=== PATIENT | female | born 1930 | race Caucasian/White ===

== ENCOUNTER 2017-11-26 08:31 | Emergency (ER) | payer MEDICARE, OTHER ==
[~2017-11-26] VITALS: Ht 154.9 cm; Wt 56.7 kg
[~2017-11-26 08:31] MED LIST: ATEN50TA PO; CITA20TA9 PO; ENAL5TAB PO; FENO200C PO; GLIM4TAB PO; LEVO112T55 PO; NF-SOLIF5T PO
[2017-11-26 09:09] LABS: BASOPHILS % (AUTO) 0 % (0-10); EOSINOPHILS % (AUTO) 0 % (0-10); HEMATOCRIT 36 % (35-52); HEMOGLOBIN 12.1 G/DL (11.5-16.0); LYMPHOCYTES # (AUTO) 1.8 X 10^3 (1.0-4.0); LYMPHOCYTES % (AUTO) 25 % (12-44); MEAN CORPUSCULAR HEMOGLOBIN 29 PG (25-34); MEAN CORPUSCULAR HGB CONC 34 G/DL (32-36); MEAN CORPUSCULAR VOLUME 86 FL (80-99); MEAN PLATELET VOLUME 11.2 FL (7.4-10.4); MONOCYTES # (AUTO) 0.6 X 10^3 (0.0-1.0); MONOCYTES % (AUTO) 8 % (0-12); NEUTROPHILS # (AUTO) 4.8 X 10^3 (1.8-7.8); NEUTROPHILS % (AUTO) 67 % (42-75); PLATELET COUNT 126 10^3/uL (130-400); RED BLOOD COUNT 4.19 10^6/uL (4.35-5.85); RED CELL DISTRIBUTION WIDTH 14.8 % (10.0-14.5); WHITE BLOOD COUNT 7.2 10^3/uL (4.3-11.0)
--- NOTE | 2017-11-26 09:23 | Diagnostic Imaging Report ---
PROCEDURE: CT head without contrast. TECHNIQUE: Multiple contiguous axial images were obtained through the brain without the use of intravenous contrast. DATE: 11/26/2017. COMPARISON: 04/07/2016. INDICATION: An 87-year-old female, altered mental status. FINDINGS: There is reduced attenuation in the right greater than left subcortical and periventricular white matter which appears similar to comparison CT head of 04/07/2016. The ventricles and cerebral spinal fluid spaces are of normal size and configuration for the patient's age. There is no mass effect or midline shift. There is no acute intracranial hemorrhage. There is no abnormal extra-axial fluid collection. The visualized portions of the paranasal sinuses, mastoid air cells and middle ears are well aerated. IMPRESSION: 1. No identified acute intracranial abnormality. 2. Nonspecific areas of reduced attenuation in the right greater than left subcortical and paraventricular white matter which potentially may reflect changes of chronic small vessel ischemic disease. This is unchanged since 04/07/2016. Dictated by: Dictated on workstation # [id number]
[2017-11-26 09:31] LABS: ALBUMIN 4.1 GM/DL (3.2-4.5); CALCIUM 9.4 MG/DL (8.5-10.1); CREATININE SERUM 1.05 MG/DL (0.60-1.30); POTASSIUM 3.8 MMOL/L (3.6-5.0); TOTAL PROTEIN 6.2 GM/DL (6.4-8.2)
[2017-11-26] MEDS ORDERED: NS IV 1000 ML 1,000 ML IV ONE (09:35)
--- NOTE | 2017-11-26 09:35 | ED Neurological Problem ---
General Chief Complaint: Altered Mental Status Stated Complaint: AMS Nursing Triage Note: PT TO ROOM 5 AMBULATED W FAMILY, PT FRIENDLY, FAMILY STATES HAS NOT SLEPT FOR 3 DAYS OR NITES, PT HAS CALLED 911 HALLUCINATING SOMEONE IN HOME TRYING TO HURT HER, PT DAUGHTER STATES HAD GOTTEN CIRCUIT BREAKER ASSEMBLER KNIFE TWICE LAST PM TALKING TO PEOPLE ASKING WHAT THEY WANTED HER TO DO NEXT. PT IS ALERT AND ORIENTED. WAS SEEN IN ED A FEW NITES AGO. Nursing Sepsis Screen: No Definite Risk Source: patient Exam Limitations: no limitations History of Present Illness Date Seen by Provider: Nov 26, 2017 Time Seen by Provider: 08:40 Initial Comments This 87-year-old woman is brought to the emergency room by her family with concerns about her agitation, hallucinations, and insomnia. She is quite fearful that people are trying to harm her and is having hallucinations to that effect. She also has not slept well in the last several nights. She was seen for similar symptoms on November 23 with a negative workup. She had some hypoglycemia prior to that. On the prior visit her medications were adjusted including decreasing glimepiride and increasing her blood pressure medications. Symptoms have not improved with these changes. In fact she has worsened. Family stated she even got pole framer knives out last night due to fear of triggers. This morning she called 911. Patient is distrustful of her family and any healthcare providers aside from Yara Gray, her primary care provider. She states she would not be agreeable or cooperative with a transfer to a behavioral health unit. Allergies and Home Medications Allergies Coded Allergies: No Known Drug Allergies (Unverified , 03/29/16) Home Medications Atenolol 50 Mg Tablet, 50 MG PO DAILY, (Reported) Cephalexin 500 Mg Capsule, 500 MG PO TID Prescribed by: RADHA VANEGAS on 11/26/17 1119 Citalopram Hydrobromide 20 Mg Tablet, 20 MG PO DAILY, (Reported) Enalapril Maleate 5 Mg Tablet, 5 MG PO DAILY, (Reported) Fenofibrate,Micronized 200 Mg Capsule, 160 MG PO DAILY, (Reported) Glimepiride 4 Mg Tablet, 4 MG PO DAILY, (Reported) Levothyroxine Sodium 112 Mcg Tablet, 112 MCG PO DAILY, (Reported) Quetiapine Fumarate 25 Mg Tablet, 1-2 TAB PO HS Prescribed by: RADHA VANEGAS on 11/26/17 1119 Solifenacin Succinate 5 Mg Tablet, 5 MG PO DAILY, (Reported) Patient Home Medication List Home Medication List Reviewed: Yes Review of Systems Constitutional: no symptoms reported Eyes: No Symptoms Reported Ears, Nose, Mouth, Throat: no symptoms reported Respiratory: no symptoms reported Cardiovascular: no symptoms reported Gastrointestinal: no symptoms reported Genitourinary: no symptoms reported : No Musculoskeletal: no symptoms reported Skin: no symptoms reported Psychiatric/Neurological: See HPI Endocrine: No Symptoms Reported Hematologic/Lymphatic: No Symptoms Reported Past Zoerhsq-Nkmjfj-Fnzjdj Hx Patient Social History Alcohol Use: Denies Use Recreational Drug Use: No Smoking Status: Never a Smoker Recent Foreign Travel: No Contact w/Someone Who Travel: No Recent Infectious Disease Expo: No Recent Hopitalizations: No Physical Abuse: No Sexual Abuse: No Seasonal Allergies Seasonal Allergies: No Past Medical History Surgeries: Yes Gallbladder Respiratory: No Cardiac: Yes Hypertension Neurological: No Gastrointestinal: No Musculoskeletal: No Endocrine: Yes Diabetes, Insulin dep, Hypothyroidsim Cancer: No Psychosocial: No Nursing Suicide Risk Score: 0 Integumentary: No Physical Exam Vital Signs Vital Signs - First Documented 11/26/17 08:35 Temp 97.5 Pulse 84 Resp 18 B/P (MAP) 184/90 (121) Pulse Ox 98 Capillary Refill : Less Than 3 Seconds General Appearance: WD/WN, no apparent distress, thin HEENT: PERRL/EOMI, normal ENT inspection, other (oropharynx dry) Neck: normal inspection Respiratory: lungs clear, normal breath sounds, no respiratory distress, no accessory muscle use Cardiovascular: regular rate, rhythm, no edema, no murmur Gastrointestinal: normal bowel sounds, non tender, soft Extremities: normal inspection, no pedal edema Neurologic/Psychiatric: crystal calibrator II-XII nml as tested, no motor/sensory deficits, alert, oriented x 3, other (paranoid, agitated. Admits to hallucinations but does not believe they are hallucinations) Crainal Nerves: normal hearing, normal speech, PERRL Motor/Sensory: no motor deficit, no sensory deficit Skin: normal color, warm/dry Progress/Results/Core Measures Lab Results Laboratory Tests Test 11/26/17 08:39 11/26/17 09:00 11/26/17 10:06 Range/Units Glucometer 249 H 70-110 MG/DL White Blood Count 7.2 4.3-11.0 10^3/uL Red Blood Count 4.19 L 4.35-5.85 10^6/uL Hemoglobin 12.1 11.5-16.0 G/DL Hematocrit 36 35-52 % Mean Corpuscular Volume 86 80-99 FL Mean Corpuscular Hemoglobin 29 25-34 PG Mean Corpuscular Hemoglobin Concent 34 32-36 G/DL Red Cell Distribution Width 14.8 H 10.0-14.5 % Platelet Count 126 L 130-400 10^3/uL Mean Platelet Volume 11.2 H 7.4-10.4 FL Neutrophils (%) (Auto) 67 42-75 % Lymphocytes (%) (Auto) 25 12-44 % Monocytes (%) (Auto) 8 0-12 % Eosinophils (%) (Auto) 0 0-10 % Basophils (%) (Auto) 0 0-10 % Neutrophils # (Auto) 4.8 1.8-7.8 X 10^3 Lymphocytes # (Auto) 1.8 1.0-4.0 X 10^3 Monocytes # (Auto) 0.6 0.0-1.0 X 10^3 Eosinophils # (Auto) 0.0 0.0-0.3 10^3/uL Basophils # (Auto) 0.0 0.0-0.1 10^3/uL Sodium Level 139 135-145 MMOL/L Potassium Level 3.8 3.6-5.0 MMOL/L Chloride Level 106 98-107 MMOL/L Carbon Dioxide Level 21 21-32 MMOL/L Anion Gap 12 5-14 MMOL/L Blood Urea Nitrogen 16 7-18 MG/DL Creatinine 1.05 0.60-1.30 MG/DL Estimat Glomerular Filtration Rate 50 BUN/Creatinine Ratio 15 Glucose Level 238 H 70-105 MG/DL Calcium Level 9.4 8.5-10.1 MG/DL Total Bilirubin 1.0 0.1-1.0 MG/DL Aspartate Amino Transf (AST/SGOT) 24 5-34 U/L Alanine Aminotransferase (ALT/SGPT) 16 0-55 U/L Alkaline Phosphatase 46 40-136 U/L Total Protein 6.2 L 6.4-8.2 GM/DL Albumin 4.1 3.2-4.5 GM/DL Urine Color YELLOW Urine Clarity CLEAR Urine pH 6.5 5-9 Urine Specific Mclean 1.015 L 1.016-1.022 Urine Protein NEGATIVE NEGATIVE Urine Glucose (UA) 4+ H NEGATIVE Urine Ketones 2+ H NEGATIVE Urine Nitrite NEGATIVE NEGATIVE Urine Bilirubin NEGATIVE NEGATIVE Urine Urobilinogen NORMAL NORMAL MG/DL Urine Leukocyte Esterase 2+ H NEGATIVE Urine RBC (Auto) 1+ H NEGATIVE Urine RBC 0-2 /HPF Urine WBC 2-5 /HPF Urine Squamous Epithelial Cells 2-5 /HPF Urine Crystals NONE /LPF Urine Bacteria TRACE /HPF Urine Casts NONE /LPF Urine Mucus NEGATIVE /LPF Urine Culture Indicated YES My Orders Orders - RADHA QUARLES MD Cbc With Automated Diff (11/26/17 08:39) Comprehensive Metabolic Panel (11/26/17 08:39) Ua Culture If Indicated (11/26/17 08:39) Saline Lock/Iv-Start (11/26/17 08:39) Ct Head Wo (11/26/17 08:39) Chest 1 View, Ap/Pa Only (11/26/17 08:39) Saline Lock/Iv-Start (11/26/17 09:35) Ns Iv 1000 Ml (Sodium Chloride 0.9%) (11/26/17 09:35) Urine Culture (11/26/17 10:06) Medications Given in ED Current Medications Medications Dose Ordered Sig/Shae Route Start Time Stop Time Status Last Admin Dose Admin Sodium Chloride 1,000 ml @ 0 mls/hr Q0M ONCE IV 11/26/17 09:35 11/26/17 09:36 DC 11/26/17 09:41 1,000 MLS/HR Vital Signs/I&O 11/26/17 11/26/17 08:35 11:26 Temp 97.5 97.5 Pulse 84 84 Resp 18 18 B/P (MAP) 184/90 (121) 184/90 (121) Pulse Ox 98 98 Blood Pressure Mean: 121 Progress Note : Progress Note Workup was again unremarkable including CT of the head. I had a lengthy conversation with patient and family. Patient is adamantly opposed to transfer to behavioral health unit or any pharmacologic treatment and not directly approved by Yara Gray. I recommended Seroquel and treatment with antibiotics for possible urinary tract infection. Patient is resistant to these recommendations. I discussed the case with Dr. Gray who approves this course of therapy on the half of [facility] Gray. Follow-up will be pursued Wednesday morning for a medication review. Since patient would be involuntary for transfer to a senior behavioral unit, family wishes not to pursue that route at this moment. They wanted to try to get the patient on Seroquel first. Diagonstic Imaging: CT Plain Films/CT/US/NM/MRI: head Comments CT head viewed by me and report reviewed. See report below: NAME: [facility] REC#: [id number] PT STATUS: REG ER : 1930 PHYSICIAN: RADHA QUARLES MD ADMIT DATE: 11/26/17/ER Draft Date of Exam:11/26/17 CT HEAD WO PROCEDURE: CT head without contrast. TECHNIQUE: Multiple contiguous axial images were obtained through the brain without the use of intravenous contrast. DATE: 11/26/2017. COMPARISON: 04/07/2016. INDICATION: An 87-year-old female, altered mental status. FINDINGS: There is reduced attenuation in the right greater than left subcortical and periventricular white matter which appears similar to comparison CT head of 04/07/2016. The ventricles and cerebral spinal fluid spaces are of normal size and configuration for the patient's age. There is no mass effect or midline shift. There is no acute intracranial hemorrhage. There is no abnormal extra-axial fluid collection. The visualized portions of the paranasal sinuses, mastoid air cells and middle ears are well aerated. IMPRESSION: 1. No identified acute intracranial abnormality. 2. Nonspecific areas of reduced attenuation in the right greater than left subcortical and paraventricular white matter which potentially may reflect changes of chronic small vessel ischemic disease. This is unchanged since 04/07/2016. Dictated on workstation # [id number] Dict: 11/26/17912 Trans: 11/26/17 0923 [facility] [id number] Interpreted by: BRE ART MD Diagonstic Imaging: Xray Plain Films/CT/US/NM/MRI: chest Comments NAME: [facility] REC#: [id number] PT STATUS: REG ER : 1930 PHYSICIAN: RADHA QUARLES MD ADMIT DATE: 11/26/17/ER Draft Date of Exam:11/26/17 CHEST 1 VIEW, AP/PA ONLY EXAM: Portable erect AP chest at 9:19 a.m. FINDINGS: There is shallow inspiration when compared with the prior exam of 03/29/2016. Allowing for this technical factor, the heart size is stable and within normal limits. The lungs are clear. There is no evidence for pneumonia, failure or pleural effusion. The mediastinum is not widened. The osseous structures are intact. IMPRESSION: There is no evidence for an acute cardiopulmonary abnormality. Dictated on workstation # [id number] Dict: 11/26/17 0936 Trans: 11/26/17 1008 [facility] [id number] Interpreted by: SOCORRO BUENROSTRO MD Departure Impression Primary Impression: Agitation Additional Impressions: Hallucination Urinary tract infection Qualified Codes: N39.0 - Urinary tract infection, site not specified Insomnia Qualified Codes: G47.00 - Insomnia, unspecified Disposition: HOME, SELF-CARE Condition: Stable Departure-Patient Inst. Decision time for Depature: 11:08 Referrals: FREDDY GRAY DO (PCP/Family) Primary Care Physician Patient Instructions: Urinary Tract Infection, Adult (DC) Add. Discharge Instructions: Start Seroquel 25 mg at supper time. Increase to 50 mg of 25 mg is not effective for improving sleep and agitation. Complete antibiotic as prescribed. See your primary care provider on Wednesday. Review medications at that time. Return to care if symptoms worsen. All discharge instructions reviewed with patient and/or family. Voiced understanding. Scripts Cephalexin (Keflex) 500 Mg Capsule 500 MG PO TID, #20 CAP Prov: RADHA QUARLES MD 11/26/17 Quetiapine Fumarate (Seroquel) 25 Mg Tablet 1-2 TAB PO HS, #30 TAB Prov: RADHA QUARLES MD 11/26/17 RADHA QUARLES MD Nov 26, 2017 09:35
--- NOTE | 2017-11-26 10:08 | Diagnostic Imaging Report ---
EXAM: Portable erect AP chest at 9:19 a.m. FINDINGS: There is shallow inspiration when compared with the prior exam of 03/29/2016. Allowing for this technical factor, the heart size is stable and within normal limits. The lungs are clear. There is no evidence for pneumonia, failure or pleural effusion. The mediastinum is not widened. The osseous structures are intact. IMPRESSION: There is no evidence for an acute cardiopulmonary abnormality. Dictated by: Dictated on workstation # [id number]
[2017-11-26 10:17] LABS: BILIRUBIN,URINE NEGATIVE (NEGATIVE); CLARITY,URINE CLEAR; COLOR,URINE YELLOW; GLUCOSE, URINE (UA) 4+ (NEGATIVE); KETONES,URINE 2+ (NEGATIVE); LEUKOCYTE ESTERASE ,URINE 2+ (NEGATIVE); NITRITE,URINE NEGATIVE (NEGATIVE); PH,URINE 6.5 (5-9); PROTEIN,URINE NEGATIVE (NEGATIVE); UROBILINOGEN,URINE NORMAL (NORMAL)
[2017-11-26 10:28] LABS: BACTERIA,URINE TRACE /HPF; RBC,URINE 0-2 /HPF
[2017-11-26] MEDS ORDERED: QUET25TA PO (11:19)
[2017-11-26] MEDS ORDERED: CEPH-507 PO (11:19)
[2017-11-26 11:26] VITALS: BP 184/90
== END 2017-11-26 11:26 | disposition home or self-care (01) ==
LOC: EDUNIT# 08:31 → ER 08:33
DX: R45.1 Restlessness and agitation (principal); N39.0 Urinary tract infection, site not specified; G47.00 Insomnia, unspecified; R44.1 Visual hallucinations; I10 Essential (primary) hypertension; E11.9 Type 2 diabetes mellitus without complications; E03.9 Hypothyroidism, unspecified; Z79.84 Long term (current) use of oral hypoglycemic drugs
CPT/HCPCS: 36415; 70450; 71045; 80053; 81000; 82962; 85025; 87088; 96360

== ENCOUNTER 2017-11-29 14:54 | Inpatient (IN) | payer MEDICARE, OTHER ==
[~2017-11-29] VITALS: Ht 160 cm; Wt 60.8 kg
[~2017-11-29 14:54] MED LIST changes: +CEPH-507 PO; +QUET25TA PO
[2017-11-29 15:50] VITALS: BP 210/81
[2017-11-29] MEDS ORDERED: cefTRIAXone INJECTION 1,000 MG in NS (IVPB) 100 ML IV SCH (15:53)
[2017-11-29] MEDS ORDERED: QUET25TA73 PO (16:00)
[2017-11-29] MEDS ORDERED: CEPH500C PO (16:00)
[2017-11-29] MEDS ORDERED: FENO160T12 PO (16:00)
[2017-11-29] MEDS ORDERED: CATHETER FLUSH 10 ML SYR IV PRN (16:00)
--- NOTE | 2017-11-29 16:13 | History & Physical-Hospitalist ---
History of Present Illness HPI/Chief Complaint Pt is a 87yoCF with a history of HTN, diabetes, and hypothyroidism who presented as a direct admission from Dr Gray's office due to paranoid delusions. She is able to tell some history though due to her delusions I am unsure what is true. Her daughter at bedside helps to supplement the history. She states that she believes for the past 2 years someone has been poisoning her water and food. She is unsure who is doing this or why so she has not eaten or drank due to this. Per her daughter these thought began around 2 weeks ago but her behaviors have worsened over the past few days with decreased intake and refusal to take any medications. Patient's only physical complaint is sneezing, runny nose, and watery eyes. Per review of ER note on 11/26 she was seen here for a UTI and sent home with antibiotics and seroquel due to lack of sleep. She has refused to take these until her NITROGLYCERIN DISTRIBUTOR Yara Gray could review them and approve of them. She does agree to me to take medications here. Source: patient, family Exam Limitations: clinical condition Date Seen 11/29/17 Time Seen by Provider: 15:45 Attending Physician Dejuan Madrigal MD PCP Jeffy Gray DO Referring Physician Date of Admission Nov 29, 2017 at 3:30 pm Home Medications & Allergies Home Medications Reviewed patient Home Medication Reconciliation performed by pharmacy medication reconciliations line service technician and/or nursing. Patients Allergies have been reviewed. Allergies Allergies Coded Allergies No Known Drug Allergies (Unverified03/29/16) Past Uilridc-Wrmwzv-Wefrse Hx Past Med/Social Hx: Reviewed and Corrections made Patient Social History Employed/Student: retired Alcohol Use: Denies Use Smoking Status: Never a Smoker Recent Foreign Travel: No Contact w/other who traveled: No Recent Hopitalizations: No Seasonal Allergies Seasonal Allergies: No Past Medical History Surgeries: Gallbladder Cardiac: High Cholesterol, Hypertension Endocrine: Diabetes, Insulin dep, Hypothyroidsim Psychosocial: Depression Family History Reviewed and Corrections made Heart Disease Review of Systems ROS-Unable to Obtain: limited due to delirium Constitutional: see HPI EENTM: tearing, nose congestion Genitourinary: No dysuria, No frequency Physical Exam Physical Exam Vital Signs Vital Signs - First Documented 11/29/17 15:50 Temp 99.8 Pulse 61 Resp 16 B/P (MAP) 210/81 (124) Pulse Ox 98 O2 Delivery Room Air Capillary Refill : General Appearance: No Apparent Distress, WD/WN HEENT: PERRL/EOMI; No Scleral Icterus (L), No Scleral Icterus (R); Other (dry mucus membranes) Neck: Non Tender, Supple; No JVD Respiratory: Lungs Clear, No Respiratory Distress Cardiovascular: Regular Rate, Rhythm, No Murmur Gastrointestinal: Normal Bowel Sounds, Non Tender, Soft Extremity: Normal Capillary Refill, No Calf Tenderness, Pedal Edema (trace) Neurologic/Psychiatric: Alert, Oriented x3, Other (oriented to self and place, not to situation, calm and cooperative but paranoid) Skin: Normal Color, Warm/Dry Results Results/Procedures Labs Laboratory Tests 11/29/17 16:55 11/30/17 06:30 12/01/17 05:45 Patient resulted labs reviewed. Assessment/Plan Admission Diagnosis UTI with Delirium Admission Status: Inpatient Order (span 2 midnights) Reason for Inpatient Admission: failed outpatient treatment Diagnosis/Problems Diagnosis/Problems (1) UTI (urinary tract infection) Status: Acute Assessment & Plan: bacteria noted on UTI but culture grew only normal estephania Will repeat and start on Rocephin Does not meet any sepsis criteria Qualifiers: Urinary tract infection type: acute cystitis Hematuria presence: without hematuria Qualified Codes: N30.00 - Acute cystitis without hematuria (2) Delirium Assessment & Plan: new onset CT head on 11/26 showed not acute changes (chronic small vessel disease) No history of falls reported, does not appear to be on blood thinner Will check electrolytes, TSH, glucose, and CXR to evaluate for other causes Will resume Seroquel Consider consult for Behavioral Unit in AM if not medical cause found (3) Essential (primary) hypertension Assessment & Plan: BP very elevated on arrival Requested manual BP reading Has been off home meds Will resume (4) Insulin dependent diabetes mellitus Status: Chronic Assessment & Plan: Reports insulin dependent but no insulin in bag of meds form home Only novolog on fill history from 10/27 Will trend and add SSI A ACHS blood sugars (5) Hypothyroidism Status: Chronic Assessment & Plan: TSh on 11/23 WNL as was T4 Resume Synthroid in AM Qualifiers: Hypothyroidism type: acquired Qualified Codes: E03.9 - Hypothyroidism, unspecified DEJUAN MADRIGAL MD Nov 29, 2017 4:12 pm
[2017-11-29] MEDS ORDERED: ONDANSETRON 4 MG/2 ML (SDV) Z0FRAN IV PRN (16:30)
[2017-11-29] MEDS ORDERED: MILK OF MAGNESIA 400 MG/5 ML 30 ML UDC PO PRN (16:30)
[2017-11-29] MEDS ORDERED: BENZONATATE 100 MG (TESSALON) CAPSULE PO PRN (16:30)
[2017-11-29] MEDS ORDERED: ANTACID SUSP 30 ML UDC (MYLANTA) PO PRN (16:30)
--- NOTE | 2017-11-29 16:37 | Diagnostic Imaging Report ---
INDICATION: Delirium, fever, confusion. TECHNIQUE: Single-view chest at 04:06p.m. CORRELATION STUDY: 11/26/2017. FINDINGS: Heart size is mildly enlarged. Mediastinum appears slightly prominent with likely tortuous course of thoracic aorta. Vasculature is within normal limits. No infiltrate. There are mildly prominent interstitial markings likely senescent type changes. IMPRESSION: 1. Negative for acute abnormality of the chest on portable imaging. Dictated by: Dictated on workstation # [id number]
[2017-11-29] MEDS ORDERED: ACETAMINOPHEN 325 MG TABLET/CAPLET (TYLENOL) PO PRN (16:45)
[2017-11-29] MEDS: NITROGLYCERIN 2% OINT 1 GM UNIT DOSE PACKET TOP PRN (16:52)
[2017-11-29] MEDS: inSUlin ASPART (NovoLOG) 1 UNIT/0.01 ML (CHARGE PER UNIT) SC SCH ×2 (17:09→21:11)
[2017-11-29 17:13] LABS: BASOPHILS % (AUTO) 0 % (0-10); EOSINOPHILS # (AUTO) 0.1 10^3/uL (0.0-0.3); EOSINOPHILS % (AUTO) 1 % (0-10); HEMATOCRIT 39 % (35-52); HEMOGLOBIN 13.2 G/DL (11.5-16.0); LYMPHOCYTES % (AUTO) 41 % (12-44); MEAN CORPUSCULAR HEMOGLOBIN 30 PG (25-34); MEAN CORPUSCULAR HGB CONC 34 G/DL (32-36); MEAN CORPUSCULAR VOLUME 87 FL (80-99); MEAN PLATELET VOLUME 11.5 FL (7.4-10.4); MONOCYTES # (AUTO) 0.6 X 10^3 (0.0-1.0); MONOCYTES % (AUTO) 8 % (0-12); NEUTROPHILS # (AUTO) 3.6 X 10^3 (1.8-7.8); NEUTROPHILS % (AUTO) 49 % (42-75); PLATELET COUNT 132 10^3/uL (130-400); RED BLOOD COUNT 4.47 10^6/uL (4.35-5.85); WHITE BLOOD COUNT 7.3 10^3/uL (4.3-11.0)
[2017-11-29 17:26] LABS: BILIRUBIN,TOTAL 1.1 MG/DL (0.1-1.0); CALCIUM 9.7 MG/DL (8.5-10.1); CREATININE SERUM 0.92 MG/DL (0.60-1.30); POTASSIUM 4.1 MMOL/L (3.6-5.0); TOTAL PROTEIN 6.6 GM/DL (6.4-8.2)
[2017-11-29 17:27] LABS: INR 1.1 (0.8-1.4); PROTHROMBIN TIME PATIENT 14.4 SEC (12.2-14.7)
[2017-11-29 19:00] VITALS: BP 184/76
[2017-11-29] MEDS: TROSPIUM 20 MG (SANCTURA) TAB PO SCH (19:25)
[2017-11-29] MEDS: QUEtiapine 25 MG (SEROquel) TAB IMMEDIATE RELEASE PO SCH (19:25)
[2017-11-29] MEDS ORDERED: ZIPRASIDONE 20 MG INJ (GEODON) VIAL IM PRN (19:30)
[2017-11-29 20:23] LABS: BILIRUBIN,URINE NEGATIVE (NEGATIVE); CLARITY,URINE CLEAR; COLOR,URINE YELLOW; GLUCOSE, URINE (UA) NEGATIVE (NEGATIVE); KETONES,URINE 1+ (NEGATIVE); LEUKOCYTE ESTERASE ,URINE 2+ (NEGATIVE); NITRITE,URINE NEGATIVE (NEGATIVE); PH,URINE 6.5 (5-9); PROTEIN,URINE NEGATIVE (NEGATIVE); UROBILINOGEN,URINE 1 MG/DL (NORMAL)
[2017-11-29 20:44] LABS: BACTERIA,URINE TRACE /HPF
[2017-11-29] MEDS: CATHETER FLUSH 10 ML SYR IV SCH (21:36)
[2017-11-30] VITALS (8 sets, daily range): BP systolic 163–185; BP diastolic 70–87
[2017-11-30] MEDS: inSUlin ASPART (NovoLOG) 1 UNIT/0.01 ML (CHARGE PER UNIT) SC SCH ×4 (06:24→21:08)
[2017-11-30] MEDS: TROSPIUM 20 MG (SANCTURA) TAB PO SCH ×2 (06:53→16:26)
[2017-11-30] MEDS: CATHETER FLUSH 10 ML SYR IV SCH ×3 (06:53→21:23)
[2017-11-30] MEDS: LEVOTHYROXINE 112 MCG (LEVOTHROID) TAB PO SCH (06:53)
[2017-11-30 06:58] LABS: BASOPHILS % (AUTO) 0 % (0-10); EOSINOPHILS # (AUTO) 0.1 10^3/uL (0.0-0.3); EOSINOPHILS % (AUTO) 2 % (0-10); HEMATOCRIT 36 % (35-52); HEMOGLOBIN 12.1 G/DL (11.5-16.0); LYMPHOCYTES # (AUTO) 2.6 X 10^3 (1.0-4.0); LYMPHOCYTES % (AUTO) 39 % (12-44); MEAN CORPUSCULAR HEMOGLOBIN 29 PG (25-34); MEAN CORPUSCULAR HGB CONC 34 G/DL (32-36); MEAN CORPUSCULAR VOLUME 87 FL (80-99); MEAN PLATELET VOLUME 11.8 FL (7.4-10.4); MONOCYTES # (AUTO) 0.5 X 10^3 (0.0-1.0); MONOCYTES % (AUTO) 7 % (0-12); NEUTROPHILS # (AUTO) 3.5 X 10^3 (1.8-7.8); NEUTROPHILS % (AUTO) 52 % (42-75); PLATELET COUNT 111 10^3/uL (130-400); RED BLOOD COUNT 4.15 10^6/uL (4.35-5.85); RED CELL DISTRIBUTION WIDTH 14.5 % (10.0-14.5); WHITE BLOOD COUNT 6.7 10^3/uL (4.3-11.0)
[2017-11-30 07:24] LABS: CARBON DIOXIDE 20 MMOL/L (21-32); CHLORIDE 105 MMOL/L (98-107); CREATININE SERUM 0.86 MG/DL (0.60-1.30); POTASSIUM 3.8 MMOL/L (3.6-5.0); SODIUM 139 MMOL/L (135-145)
[2017-11-30 07:25] LABS: BUN/CREATININE RATIO 19; CALCIUM 8.9 MG/DL (8.5-10.1); GFR ESTIMATED > 60; GLUCOSE 167 MG/DL (70-105)
[2017-11-30] MEDS: ENALAPRIL 5 MG (VASOTEC) TAB PO SCH (08:28)
[2017-11-30] MEDS: ATENOLOL 50 MG (TENORMIN) TAB PO SCH (08:31)
[2017-11-30] MEDS: FLUTICASONE NASAL SPRAY (FLONASE) 16 GM BTL NS SCH (08:31)
--- NOTE | 2017-11-30 11:11 | Progress Note-Hospitalist ---
Subjective HPI/CC On Admission Date Seen by Provider: November 30, 2017 Time Seen by Provider: 11:05 Pt is a 87yoCF with a history of HTN, diabetes, and hypothyroidism who presented as a direct admission from Dr Gray's office due to paranoid delusions. She is able to tell some history though due to her delusions I am unsure what is true. Her daughter at bedside helps to supplement the history. She states that she believes for the past 2 years someone has been poisoning her water and food. She is unsure who is doing this or why so she has not eaten or drank due to this. Per her daughter these thought began around 2 weeks ago but her behaviors have worsened over the past few days with decreased intake and refusal to take any medications. Patient's only physical complaint is sneezing, runny nose, and watery eyes. Per review of ER note on 11/26 she was seen here for a UTI and sent home with antibiotics and seroquel due to lack of sleep. She has refused to take these until her ROLLING ATTENDANT Yara Gray could review them and approve of them. She does agree to me to take medications here. Subjective/Events-last exam Denies any complaints. Discussed with plan for behavioral unit evaluation. Focused Exam Lactate Level 11/29/17 16:55: Lactic Acid Level 1.02 Objective Exam Vital Signs Vital Signs Date Time Temp Pulse Resp B/P (MAP) Pulse Ox O2 Delivery O2 Flow Rate FiO2 11/30/17 08:20 99 Room Air 11/30/17 08:00 97.8 60 18 185/79 (114) Capillary Refill : General Appearance: No Apparent Distress, WD/WN Respiratory: Lungs Clear, No Respiratory Distress Cardiovascular: Regular Rate, Rhythm, No Murmur Extremity: No Calf Tenderness, Pedal Edema Neurologic/Psychiatric: Alert, Other (oriented to person and place only) Results/Procedures Lab Laboratory Tests 11/29/17 16:55 11/30/17 06:30 Patient resulted labs reviewed. Assessment/Plan Assessment and Plan Assess & Plan/Chief Complaint Delirium Diagnosis/Problems Diagnosis/Problems (1) UTI (urinary tract infection) Status: Acute Assessment & Plan: bacteria noted on UTI but culture grew only normal estephania from ER Continue Rocephin Day 2/3 Does not meet any sepsis criteria Qualifiers: Urinary tract infection type: acute cystitis Hematuria presence: without hematuria Qualified Codes: N30.00 - Acute cystitis without hematuria (2) Delirium Assessment & Plan: CT head on 11/26 showed not acute changes (chronic small vessel disease) No history of falls reported, does not appear to be on blood thinner Labs normal Seroquel ordered but she refused Consult for Behavioral Unit in [place] for evaluation Discussed with (3) Essential (primary) hypertension Assessment & Plan: Resume home BP meds (4) Insulin dependent diabetes mellitus Status: Chronic Assessment & Plan: Reports insulin dependent but no insulin in bag of meds from home Only novolog on fill history from 10/27 SSI A ACHS blood sugars (5) Hypothyroidism Status: Chronic Assessment & Plan: TSh on 11/23 WNL as was T4 Resume Synthroid in AM Qualifiers: Hypothyroidism type: acquired Qualified Codes: E03.9 - Hypothyroidism, unspecified Clinical Quality Measures DVT/VTE Risk/Contraindication: Risk Factor Score Per Nursin RFS Level Per Nursing on Admit: 4+=Very High DEJUAN HARE MD November 30, 2017 11:11 am
[2017-11-30] MEDS: NITROGLYCERIN 2% OINT 1 GM UNIT DOSE PACKET TOP PRN ×2 (11:34→21:22)
[2017-11-30] MEDS: cefTRIAXone INJECTION 1,000 MG in NS (IVPB) 100 ML IV SCH (18:04)
[2017-11-30] MEDS: QUEtiapine 25 MG (SEROquel) TAB IMMEDIATE RELEASE PO SCH (21:27)
[2017-12-01 00:03] VITALS: BP 167/81
[2017-12-01 03:54] VITALS: BP 143/71
[2017-12-01] MEDS: inSUlin ASPART (NovoLOG) 1 UNIT/0.01 ML (CHARGE PER UNIT) SC SCH ×4 (05:35→21:07)
[2017-12-01] MEDS: LEVOTHYROXINE 112 MCG (LEVOTHROID) TAB PO SCH (05:48)
[2017-12-01] MEDS: CATHETER FLUSH 10 ML SYR IV SCH ×3 (05:48→21:46)
[2017-12-01] MEDS: TROSPIUM 20 MG (SANCTURA) TAB PO SCH ×2 (05:48→17:16)
[2017-12-01 06:02] LABS: BASOPHILS % (AUTO) 0 % (0-10); EOSINOPHILS # (AUTO) 0.1 10^3/uL (0.0-0.3); EOSINOPHILS % (AUTO) 1 % (0-10); HEMATOCRIT 38 % (35-52); HEMOGLOBIN 12.7 G/DL (11.5-16.0); LYMPHOCYTES # (AUTO) 2.4 X 10^3 (1.0-4.0); LYMPHOCYTES % (AUTO) 33 % (12-44); MEAN CORPUSCULAR HEMOGLOBIN 29 PG (25-34); MEAN CORPUSCULAR HGB CONC 34 G/DL (32-36); MEAN CORPUSCULAR VOLUME 86 FL (80-99); MEAN PLATELET VOLUME 11.6 FL (7.4-10.4); MONOCYTES # (AUTO) 0.5 X 10^3 (0.0-1.0); MONOCYTES % (AUTO) 7 % (0-12); NEUTROPHILS # (AUTO) 4.3 X 10^3 (1.8-7.8); NEUTROPHILS % (AUTO) 59 % (42-75); PLATELET COUNT 128 10^3/uL (130-400); RED BLOOD COUNT 4.41 10^6/uL (4.35-5.85); RED CELL DISTRIBUTION WIDTH 14.7 % (10.0-14.5); WHITE BLOOD COUNT 7.3 10^3/uL (4.3-11.0)
[2017-12-01 06:18] LABS: BUN/CREATININE RATIO 19; CALCIUM 9.2 MG/DL (8.5-10.1); CARBON DIOXIDE 24 MMOL/L (21-32); CHLORIDE 105 MMOL/L (98-107); CREATININE SERUM 0.88 MG/DL (0.60-1.30); GFR ESTIMATED > 60; GLUCOSE 191 MG/DL (70-105); POTASSIUM 3.8 MMOL/L (3.6-5.0); SODIUM 140 MMOL/L (135-145)
[2017-12-01 08:00] VITALS: BP 180/80
[2017-12-01] MEDS: ATENOLOL 50 MG (TENORMIN) TAB PO SCH (09:36)
[2017-12-01] MEDS: ENALAPRIL 5 MG (VASOTEC) TAB PO SCH (09:37)
[2017-12-01] MEDS: FLUTICASONE NASAL SPRAY (FLONASE) 16 GM BTL NS SCH (09:38)
[2017-12-01 12:00] VITALS: BP 174/73
--- NOTE | 2017-12-01 14:49 | Progress Note-Hospitalist ---
Subjective HPI/CC On Admission Date Seen by Provider: December 01, 2017 Time Seen by Provider: 08:15 Pt is a 87yoCF with a history of HTN, diabetes, and hypothyroidism who presented as a direct admission from Dr Gray's office due to paranoid delusions. She is able to tell some history though due to her delusions I am unsure what is true. Her daughter at bedside helps to supplement the history. She states that she believes for the past 2 years someone has been poisoning her water and food. She is unsure who is doing this or why so she has not eaten or drank due to this. Per her daughter these thought began around 2 weeks ago but her behaviors have worsened over the past few days with decreased intake and refusal to take any medications. Patient's only physical complaint is sneezing, runny nose, and watery eyes. Per review of ER note on 11/26 she was seen here for a UTI and sent home with antibiotics and seroquel due to lack of sleep. She has refused to take these until her PREDICTIVE MAINTENANCE SPECIALIST Yara Gray could review them and approve of them. She does agree to me to take medications here. Subjective/Events-last exam When I entered room patient sitting calmly in bed talking but no one was in the room. When I asked who she was talking to she said "they're after me." She was unsure who was after her. She had no other complaints. Focused Exam Lactate Level 11/29/17 16:55: Lactic Acid Level 1.02 Objective Exam Vital Signs Vital Signs Date Time Temp Pulse Resp B/P (MAP) Pulse Ox O2 Delivery O2 Flow Rate FiO2 12/01/17 12:00 99.6 66 28 174/73 (106) 97 Room Air Capillary Refill : General Appearance: No Apparent Distress, WD/WN Respiratory: Lungs Clear, No Respiratory Distress Cardiovascular: Regular Rate, Rhythm, No Murmur Gastrointestinal: Normal Bowel Sounds, Non Tender, Soft Neurologic/Psychiatric: Alert, Other (clearly hallucinating and paranoid) Results/Procedures Lab Laboratory Tests 12/01/17 05:45 Patient resulted labs reviewed. Assessment/Plan Assessment and Plan Assess & Plan/Chief Complaint Delirium Diagnosis/Problems Diagnosis/Problems (1) UTI (urinary tract infection) Status: Acute Assessment & Plan: bacteria noted on UTI but culture grew only normal estephania from ER Complete Rocephin today Does not meet any sepsis criteria Qualifiers: Urinary tract infection type: acute cystitis Hematuria presence: without hematuria Qualified Codes: N30.00 - Acute cystitis without hematuria (2) Delirium Assessment & Plan: CT head on 11/26 showed no acute changes (chronic small vessel disease) No history of falls reported, does not appear to be on blood thinner Labs normal Seroquel ordered but she refused Consult for Behavioral Unit in [place] for evaluation David was here to screen and patient was unwilling to sign for voluntary admission despite multiple efforts to discuss plan with patient by him and social Social work consulted to help family pursue guardianship, appreciate assistance (3) Essential (primary) hypertension Assessment & Plan: Resume home BP meds (4) Insulin dependent diabetes mellitus Status: Chronic Assessment & Plan: Reports insulin dependent but no insulin in bag of meds from home Only novolog on fill history from 10/27 SSI A ACHS blood sugars (5) Hypothyroidism Status: Chronic Assessment & Plan: TSH on 11/23 WNL as was T4 Continue Synthroid Qualifiers: Hypothyroidism type: acquired Qualified Codes: E03.9 - Hypothyroidism, unspecified Clinical Quality Measures DVT/VTE Risk/Contraindication: Risk Factor Score Per Nursin RFS Level Per Nursing on Admit: 4+=Very High DEJUAN HARE MD December 01, 2017 2:49 pm
[2017-12-01 16:00] VITALS: BP 178/93
[2017-12-01] MEDS: cefTRIAXone INJECTION 1,000 MG in NS (IVPB) 100 ML IV SCH (17:16)
[2017-12-01] MEDS: QUEtiapine 25 MG (SEROquel) TAB IMMEDIATE RELEASE PO SCH (19:47)
[2017-12-01 20:00] VITALS: BP 176/80
[2017-12-02] VITALS: BP 166/81
[2017-12-02] MEDS: inSUlin ASPART (NovoLOG) 1 UNIT/0.01 ML (CHARGE PER UNIT) SC SCH ×3 (06:38→16:25)
[2017-12-02] MEDS: LEVOTHYROXINE 112 MCG (LEVOTHROID) TAB PO SCH (06:45)
[2017-12-02] MEDS: TROSPIUM 20 MG (SANCTURA) TAB PO SCH ×2 (06:45→16:26)
[2017-12-02] MEDS: CATHETER FLUSH 10 ML SYR IV SCH ×3 (06:45→20:13)
[2017-12-02 08:00] VITALS: BP 141/65
[2017-12-02] MEDS: ATENOLOL 50 MG (TENORMIN) TAB PO SCH (09:21)
[2017-12-02] MEDS: FLUTICASONE NASAL SPRAY (FLONASE) 16 GM BTL NS SCH (09:21)
[2017-12-02] MEDS: ENALAPRIL 5 MG (VASOTEC) TAB PO SCH (09:23)
--- NOTE | 2017-12-02 11:22 | Progress Note-Hospitalist ---
Subjective HPI/CC On Admission Date Seen by Provider: December 02, 2017 Time Seen by Provider: 11:17 Pt is a 87yoCF with a history of HTN, diabetes, and hypothyroidism who presented as a direct admission from Dr Gray's office due to paranoid delusions. She is able to tell some history though due to her delusions I am unsure what is true. Her daughter at bedside helps to supplement the history. She states that she believes for the past 2 years someone has been poisoning her water and food. She is unsure who is doing this or why so she has not eaten or drank due to this. Per her daughter these thought began around 2 weeks ago but her behaviors have worsened over the past few days with decreased intake and refusal to take any medications. Patient's only physical complaint is sneezing, runny nose, and watery eyes. Per review of ER note on 11/26 she was seen here for a UTI and sent home with antibiotics and seroquel due to lack of sleep. She has refused to take these until her AUTOMATIC GRINDING MACHINE OPERATOR Yara Gray could review them and approve of them. She does agree to me to take medications here. Subjective/Events-last exam Pt denies any complaints or needs. Focused Exam Lactate Level 11/29/17 16:55: Lactic Acid Level 1.02 Objective Exam Vital Signs Vital Signs Date Time Temp Pulse Resp B/P (MAP) Pulse Ox O2 Delivery O2 Flow Rate FiO2 12/02/17 08:00 98.0 66 20 141/65 (90) 95 Room Air Capillary Refill : General Appearance: No Apparent Distress, WD/WN Respiratory: Lungs Clear Cardiovascular: Regular Rate, Rhythm, No Murmur Gastrointestinal: Normal Bowel Sounds, Non Tender, Soft Neurologic/Psychiatric: Alert, Oriented x3 Results/Procedures Lab Patient resulted labs reviewed. Assessment/Plan Assessment and Plan Assess & Plan/Chief Complaint Delirium Diagnosis/Problems Diagnosis/Problems (1) Delirium Assessment & Plan: CT head on 11/26 showed no acute changes (chronic small vessel disease) No history of falls reported, does not appear to be on blood thinner Labs normal Continue Seroquel Consult for Behavioral Unit in [place] for evaluation David was here to screen and patient was unwilling to sign for voluntary admission despite multiple efforts to discuss plan with patient by him and social worrk Family to petition court for guardianship today Social work consulted to help family pursue guardianship, appreciate assistance (2) UTI (urinary tract infection) Status: Resolved Assessment & Plan: bacteria noted on UTI but culture grew only normal estephania from ER Completed Rocephin 12/02 Does not meet any sepsis criteria Qualifiers: Urinary tract infection type: acute cystitis Hematuria presence: without hematuria Qualified Codes: N30.00 - Acute cystitis without hematuria (3) Essential (primary) hypertension Assessment & Plan: Continue home BP meds Improved control (4) Insulin dependent diabetes mellitus Status: Chronic Assessment & Plan: Reports insulin dependent but no insulin in bag of meds from home Only novolog on fill history from 10/27 SSI A ACHS blood sugars (5) Hypothyroidism Status: Chronic Assessment & Plan: TSH on 11/23 WNL as was T4 Continue Synthroid Qualifiers: Hypothyroidism type: acquired Qualified Codes: E03.9 - Hypothyroidism, unspecified Clinical Quality Measures DVT/VTE Risk/Contraindication: Risk Factor Score Per Nursin RFS Level Per Nursing on Admit: 4+=Very High DEJUAN HARE MD December 02, 2017 11:22
[2017-12-02 16:30] VITALS: BP 177/76
[2017-12-02] MEDS: QUEtiapine 25 MG (SEROquel) TAB IMMEDIATE RELEASE PO SCH (20:12)
[2017-12-03 00:20] VITALS: BP 163/77
[2017-12-03] MEDS: CATHETER FLUSH 10 ML SYR IV SCH ×3 (06:22→20:50)
[2017-12-03 08:00] VITALS: BP 157/92
[2017-12-03] MEDS: ENALAPRIL 5 MG (VASOTEC) TAB PO SCH (09:33)
[2017-12-03] MEDS: ATENOLOL 50 MG (TENORMIN) TAB PO SCH (09:33)
[2017-12-03] MEDS: LEVOTHYROXINE 112 MCG (LEVOTHROID) TAB PO SCH (09:34)
[2017-12-03] MEDS: ACETAMINOPHEN 500 MG TAB (TYLENOL) PO PRN (09:34)
[2017-12-03] MEDS: FLUTICASONE NASAL SPRAY (FLONASE) 16 GM BTL NS SCH (09:34)
[2017-12-03] MEDS: TROSPIUM 20 MG (SANCTURA) TAB PO SCH ×2 (09:34→17:12)
--- NOTE | 2017-12-03 10:22 | Progress Note-Hospitalist ---
Subjective HPI/CC On Admission Date Seen by Provider: December 03, 2017 Time Seen by Provider: 10:15 Pt is a 87yoCF with a history of HTN, diabetes, and hypothyroidism who presented as a direct admission from Dr Gray's office due to paranoid delusions. She is able to tell some history though due to her delusions I am unsure what is true. Her daughter at bedside helps to supplement the history. She states that she believes for the past 2 years someone has been poisoning her water and food. She is unsure who is doing this or why so she has not eaten or drank due to this. Per her daughter these thought began around 2 weeks ago but her behaviors have worsened over the past few days with decreased intake and refusal to take any medications. Patient's only physical complaint is sneezing, runny nose, and watery eyes. Per review of ER note on 11/26 she was seen here for a UTI and sent home with antibiotics and seroquel due to lack of sleep. She has refused to take these until her SPRINKLING SYSTEM INSTALLER Yara Gray could review them and approve of them. She does agree to me to take medications here. Subjective/Events-last exam Doing well. No complaints. Only request is for orange juice. Awaiting emergency guardianship. Objective Exam Vital Signs Vital Signs Date Time Temp Pulse Resp B/P (MAP) Pulse Ox O2 Delivery O2 Flow Rate FiO2 12/03/17 00:20 98.5 69 20 163/77 (105) 96 Room Air Capillary Refill : General Appearance: No Apparent Distress, WD/WN Respiratory: Lungs Clear, No Respiratory Distress Cardiovascular: Regular Rate, Rhythm, No Murmur Gastrointestinal: Normal Bowel Sounds, Soft Neurologic/Psychiatric: Alert, Other (oriented only to self) Results/Procedures Lab Patient resulted labs reviewed. Assessment/Plan Assessment and Plan Assess & Plan/Chief Complaint Delirium Diagnosis/Problems Diagnosis/Problems (1) Delirium Assessment & Plan: CT head on 11/26 showed no acute changes (chronic small vessel disease) No history of falls reported, does not appear to be on blood thinner Labs normal Continue Seroquel Consult for Behavioral Unit in [place] for evaluation David was here to screen and patient was unwilling to sign for voluntary admission despite multiple efforts to discuss plan with patient by him and social worrk Family to petition court for guardianship, has been very confused about paperwork needing to be done SW has assisted family multiple times regarding appropriate paperwork and has even called the corporate associate attorney to inform their office as well Awaiting guardianship Social work consulted to help family pursue guardianship, appreciate assistance (2) UTI (urinary tract infection) Status: Resolved Assessment & Plan: bacteria noted on UTI but culture grew only normal estephania from ER Completed Rocephin 12/02 Does not meet any sepsis criteria Qualifiers: Urinary tract infection type: acute cystitis Hematuria presence: without hematuria Qualified Codes: N30.00 - Acute cystitis without hematuria (3) Essential (primary) hypertension Assessment & Plan: Continue home BP meds Improved control (4) Insulin dependent diabetes mellitus Status: Chronic Assessment & Plan: Blood sugar low yesterday Continue ACHS blood sugar checks (5) Hypothyroidism Status: Chronic Assessment & Plan: TSH on 11/23 WNL as was T4 Continue Synthroid Qualifiers: Hypothyroidism type: acquired Qualified Codes: E03.9 - Hypothyroidism, unspecified Clinical Quality Measures DVT/VTE Risk/Contraindication: Risk Factor Score Per Nursin RFS Level Per Nursing on Admit: 4+=Very High DEJUAN HARE MD December 03, 2017 10:22 am
[2017-12-03 15:45] VITALS: BP 146/65
[2017-12-03] MEDS ORDERED: inSUlin ASPART (NovoLOG) 1 UNIT/0.01 ML (CHARGE PER UNIT) SC SCH (16:30)
[2017-12-03] MEDS: inSUlin ASPART (NovoLOG) 1 UNIT/0.01 ML (CHARGE PER UNIT) SC SCH ×2 (17:13→20:50)
[2017-12-03] MEDS: QUEtiapine 25 MG (SEROquel) TAB IMMEDIATE RELEASE PO SCH (20:50)
[2017-12-04 00:38] VITALS: BP 125/62
[2017-12-04] MEDS: TROSPIUM 20 MG (SANCTURA) TAB PO SCH ×2 (06:03→17:58)
[2017-12-04] MEDS: inSUlin ASPART (NovoLOG) 1 UNIT/0.01 ML (CHARGE PER UNIT) SC SCH ×4 (06:03→21:44)
[2017-12-04] MEDS: CATHETER FLUSH 10 ML SYR IV SCH ×3 (06:03→21:44)
[2017-12-04] MEDS: LEVOTHYROXINE 112 MCG (LEVOTHROID) TAB PO SCH (06:03)
[2017-12-04 08:00] VITALS: BP 138/64
[2017-12-04] MEDS: ATENOLOL 50 MG (TENORMIN) TAB PO SCH (08:56)
[2017-12-04] MEDS: ENALAPRIL 5 MG (VASOTEC) TAB PO SCH (08:56)
[2017-12-04] MEDS: FLUTICASONE NASAL SPRAY (FLONASE) 16 GM BTL NS SCH (08:57)
--- NOTE | 2017-12-04 10:44 | Progress Note-Hospitalist ---
Subjective HPI/CC On Admission Date Seen by Provider: December 04, 2017 Time Seen by Provider: 10:41 Pt is a 87yoCF with a history of HTN, diabetes, and hypothyroidism who presented as a direct admission from Dr Gray's office due to paranoid delusions. She is able to tell some history though due to her delusions I am unsure what is true. Her daughter at bedside helps to supplement the history. She states that she believes for the past 2 years someone has been poisoning her water and food. She is unsure who is doing this or why so she has not eaten or drank due to this. Per her daughter these thought began around 2 weeks ago but her behaviors have worsened over the past few days with decreased intake and refusal to take any medications. Patient's only physical complaint is sneezing, runny nose, and watery eyes. Per review of ER note on 11/26 she was seen here for a UTI and sent home with antibiotics and seroquel due to lack of sleep. She has refused to take these until her COMPENSATION/BENEFITS SPECIALIST Yara Gray could review them and approve of them. She does agree to me to take medications here. Subjective/Events-last exam Pt states she doesn't know how she feels. She states she is scared and upset because invisible people are chasing her and there is a small girl crying. She otherwise has no complaints and is sitting in bed resting. her is the only person at bedside. Objective Exam Vital Signs Vital Signs Date Time Temp Pulse Resp B/P (MAP) Pulse Ox O2 Delivery O2 Flow Rate FiO2 5/5/18 00:38 97.6 67 20 125/62 (83) 96 Room Air Capillary Refill : General Appearance: No Apparent Distress Respiratory: Lungs Clear, No Respiratory Distress Cardiovascular: Regular Rate, Rhythm, No Murmur Gastrointestinal: Normal Bowel Sounds, Non Tender, Soft Neurologic/Psychiatric: Alert, Disoriented, Other (hallucinating) Skin: Normal Color, Warm/Dry Results/Procedures Lab Patient resulted labs reviewed. Assessment/Plan Assessment and Plan Assess & Plan/Chief Complaint Delirium Diagnosis/Problems Diagnosis/Problems (1) Delirium Assessment & Plan: CT head on 11/26 showed no acute changes (chronic small vessel disease) No history of falls reported, does not appear to be on blood thinner Labs normal Continue Seroquel Consult for Behavioral Unit in [place] for evaluation David was here to screen and patient was unwilling to sign for voluntary admission despite multiple efforts to discuss plan with patient by him and social work Family to petition court for guardianship, has been very confused about paperwork needing to be done SW has assisted family multiple times regarding appropriate paperwork and has even called the commonwealth attorney to inform their office as well Awaiting guardianship- family met with commonwealth attorney yesterday and earliest this can be obtained is Wednesday Social work consulted to help family pursue guardianship, appreciate assistance (2) UTI (urinary tract infection) Status: Resolved Assessment & Plan: bacteria noted on UTI but culture grew only normal estephania from ER Completed Rocephin 12/02 Does not meet any sepsis criteria Qualifiers: Urinary tract infection type: acute cystitis Hematuria presence: without hematuria Qualified Codes: N30.00 - Acute cystitis without hematuria (3) Essential (primary) hypertension Status: Chronic Assessment & Plan: Continue home BP meds as patient will take Improved control (4) Insulin dependent diabetes mellitus Status: Chronic Assessment & Plan: Blood sugar labile, continue to trend SSI (5) Hypothyroidism Status: Chronic Assessment & Plan: TSH on 11/23 WNL as was T4 Continue Synthroid Qualifiers: Hypothyroidism type: acquired Qualified Codes: E03.9 - Hypothyroidism, unspecified Clinical Quality Measures DVT/VTE Risk/Contraindication: Risk Factor Score Per Nursin RFS Level Per Nursing on Admit: 4+=Very High DEJUAN HARE MD December 04, 2017 10:44 am
[2017-12-04] MEDS: ACETAMINOPHEN 500 MG TAB (TYLENOL) PO PRN (11:44)
[2017-12-04 16:00] VITALS: BP 180/72
[2017-12-04] MEDS: QUEtiapine 25 MG (SEROquel) TAB IMMEDIATE RELEASE PO SCH (19:34)
[2017-12-04 20:00] VITALS: BP 179/84
[2017-12-04] MEDS ORDERED: WATER (STERILE) FOR INJECTION 20 ML ONE (21:32)
[2017-12-05] MEDS: inSUlin ASPART (NovoLOG) 1 UNIT/0.01 ML (CHARGE PER UNIT) SC SCH ×4 (06:23→21:20)
[2017-12-05 08:30] VITALS: BP 151/68
[2017-12-05] MEDS: LEVOTHYROXINE 112 MCG (LEVOTHROID) TAB PO SCH (08:56)
[2017-12-05] MEDS: CATHETER FLUSH 10 ML SYR IV SCH ×3 (08:56→21:20)
[2017-12-05] MEDS: ATENOLOL 50 MG (TENORMIN) TAB PO SCH (08:56)
[2017-12-05] MEDS: ENALAPRIL 5 MG (VASOTEC) TAB PO SCH (08:56)
[2017-12-05] MEDS: TROSPIUM 20 MG (SANCTURA) TAB PO SCH ×2 (09:05→17:23)
[2017-12-05] MEDS: FLUTICASONE NASAL SPRAY (FLONASE) 16 GM BTL NS SCH (09:06)
--- NOTE | 2017-12-05 10:53 | Progress Note-Hospitalist ---
Subjective HPI/CC On Admission Date Seen by Provider: December 05, 2017 Time Seen by Provider: 10:49 Pt is a 87yoCF with a history of HTN, diabetes, and hypothyroidism who presented as a direct admission from Dr Gray's office due to paranoid delusions. She is able to tell some history though due to her delusions I am unsure what is true. Her daughter at bedside helps to supplement the history. She states that she believes for the past 2 years someone has been poisoning her water and food. She is unsure who is doing this or why so she has not eaten or drank due to this. Per her daughter these thought began around 2 weeks ago but her behaviors have worsened over the past few days with decreased intake and refusal to take any medications. Patient's only physical complaint is sneezing, runny nose, and watery eyes. Per review of ER note on 11/26 she was seen here for a UTI and sent home with antibiotics and seroquel due to lack of sleep. She has refused to take these until her IT SERVICE DELIVERY MANAGER Yara Gray could review them and approve of them. She does agree to me to take medications here. Subjective/Events-last exam Pt is pleasantly confused eating breakfast. She requests rice krispies and 2% milk but otherwise has no complaints or concerns. Objective Exam Vital Signs Vital Signs Date Time Temp Pulse Resp B/P (MAP) Pulse Ox O2 Delivery O2 Flow Rate FiO2 12/05/17 08:14 Room Air 12/04/17 20:00 100.2 79 18 179/84 (115) 96 Capillary Refill : General Appearance: No Apparent Distress, WD/WN Respiratory: Lungs Clear, No Respiratory Distress Cardiovascular: Regular Rate, Rhythm, No Murmur Gastrointestinal: Normal Bowel Sounds, Non Tender, Soft Neurologic/Psychiatric: Alert, Disoriented Results/Procedures Lab Patient resulted labs reviewed. Assessment/Plan Assessment and Plan Assess & Plan/Chief Complaint Delirium Diagnosis/Problems Diagnosis/Problems (1) Delirium Assessment & Plan: CT head on 11/26 showed no acute changes (chronic small vessel disease) No history of falls reported, does not appear to be on blood thinner Labs normal Continue Seroquel as she will tolerate Necessitated Geodon x1 last night Consult for Behavioral Unit in [place] for evaluation David was here to screen and patient was unwilling to sign for voluntary admission despite multiple efforts to discuss plan with patient by him and social work Family to petition court for guardianship, has been very confused about paperwork needing to be done SW has assisted family multiple times regarding appropriate paperwork and has even called the prosecuting attorney to inform their office as well Awaiting guardianship- family met with prosecuting attorney 12/03 and earliest this can be obtained is Wednesday Social work consulted to help family pursue guardianship, appreciate assistance (2) UTI (urinary tract infection) Status: Resolved Assessment & Plan: bacteria noted on UTI but culture grew only normal estephania from ER Completed Rocephin 12/02 Does not meet any sepsis criteria Qualifiers: Urinary tract infection type: acute cystitis Hematuria presence: without hematuria Qualified Codes: N30.00 - Acute cystitis without hematuria (3) Essential (primary) hypertension Status: Chronic Assessment & Plan: Continue home BP meds as patient will take Elevated this AM (4) Insulin dependent diabetes mellitus Status: Chronic Assessment & Plan: Blood sugar labile, continue to trend SSI (5) Hypothyroidism Status: Chronic Assessment & Plan: TSH on 11/23 WNL as was T4 Continue Synthroid Qualifiers: Hypothyroidism type: acquired Qualified Codes: E03.9 - Hypothyroidism, unspecified Clinical Quality Measures DVT/VTE Risk/Contraindication: Risk Factor Score Per Nursin RFS Level Per Nursing on Admit: 4+=Very High DEJUAN HARE MD December 05, 2017 10:52 am
[2017-12-05 16:00] VITALS: BP 156/66
[2017-12-05] MEDS: QUEtiapine 25 MG (SEROquel) TAB IMMEDIATE RELEASE PO SCH (20:43)
[2017-12-06 00:15] VITALS: BP 162/77
[2017-12-06] MEDS: CATHETER FLUSH 10 ML SYR IV SCH (07:03)
[2017-12-06] MEDS: inSUlin ASPART (NovoLOG) 1 UNIT/0.01 ML (CHARGE PER UNIT) SC SCH (07:12)
[2017-12-06 08:00] VITALS: BP 178/78
--- NOTE | 2017-12-06 09:51 | Discharge Summary-Hospitalist ---
Diagnosis/Chief Complaint Date of Admission Nov 29, 2017 at 15:30 Date of Discharge Admission Diagnosis UTI with Delirium Discharge Diagnosis (1) Delirium Status: Acute Assessment & Plan: CT head on 11/26 showed no acute changes (chronic small vessel disease) No history of falls reported, does not appear to be on blood thinner Labs normal Continue Seroquel as she will tolerate Necessitated Geodon x1 last night Consult for Behavioral Unit in [place] for evaluation David was here to screen and patient was unwilling to sign for voluntary admission despite multiple efforts to discuss plan with patient by him and social work Family to petition court for guardianship, has been very confused about paperwork needing to be done SW has assisted family multiple times regarding appropriate paperwork and has even called the assistant district attorney to inform their office as well Awaiting guardianship- family met with assistant district attorney 12/03 and earliest this can be obtained is Wednesday Social work consulted to help family pursue guardianship, appreciate assistance (2) UTI (urinary tract infection) Status: Resolved Assessment & Plan: bacteria noted on UTI but culture grew only normal estephania from ER Completed Rocephin 12/02 Does not meet any sepsis criteria (3) Essential (primary) hypertension Status: Chronic Assessment & Plan: Continue home BP meds as patient will take Elevated this AM (4) Insulin dependent diabetes mellitus Status: Chronic Assessment & Plan: Blood sugar labile, continue to trend SSI (5) Hypothyroidism Status: Chronic Assessment & Plan: TSH on 11/23 WNL as was T4 Continue Synthroid Discharge Summary Discharge Physical Exam Allergies: Coded Allergies: No Known Drug Allergies (Unverified , 03/29/16) Vitals & I&Os Vital Signs Date Time Temp Pulse Resp B/P (MAP) Pulse Ox O2 Delivery O2 Flow Rate FiO2 12/06/17 00:15 98.2 68 20 162/77 (105) 99 Room Air General Appearance: Alert, Cooperative Respiratory: Clear to Auscultation, Normal Air Movement Cardiovascular: Regular Rate, Normal S1, Normal S2 Neuro: Normal Gait, Normal Speech, Strength at 5/5 X4 Ext Psych/Mental Status: Other (Confused) Hospital Course Hospital course: Patient had a lengthy hospital course since she was admitted due to UTI and severe delirium and confusion and paranoia. It took a lengthy 7 days to obtain guardianship due to patient's inability to make decisions for herself and once that was obtained she was stable clinically and will be transferred and admitted to the senior behavioral unit at [place] in order to control the paranoia and hopefully increase the cognitive ability. Overall she is stable and she will be admitted on her regular home medication at the senior unit and I will meter and service line inspector and monitor medical management during her stay. Labs (last 24 hrs) Laboratory Tests 12/05/17 11:35: Glucometer 313H 12/05/17 16:22: Glucometer 223H 12/05/17 20:58: Glucometer 259H 12/06/17 07:02: Glucometer 171H Microbiology 11/29/17 Blood Culture - Final, Complete No growth 11/29/17 Influenza Types A,B Antigen (JOSE LUIS) - Final, Complete Patient resulted labs reviewed. Pending Labs Laboratory Tests 12/06/17 07:02: Glucometer 171 Discussion & Recommendations Discharge Planning: >30 minutes discharge planning Discharge Home Medications: Active Scripts Active Reported Fenofibrate 160 Mg Tablet 160 Mg PO DAILY Quetiapine Fumarate 25 Mg Tablet 25-50 Mg PO HS TAKES 1-2 OF A (25 MG) TABLET Cephalexin 500 Mg Capsule 500 Mg PO TID FILLED 11/26/17 #20 FOR A 7 DAY THERAPY Atenolol 50 Mg Tablet 50 Mg PO DAILY Citalopram HBr (Citalopram Hydrobromide) 20 Mg Tablet 20 Mg PO DAILY Levothyroxine Sodium 112 Mcg Tablet 112 Mcg PO DAILY Vesicare (Solifenacin Succinate) 5 Mg Tablet 5 Mg PO DAILY Enalapril Maleate 5 Mg Tablet 5 Mg PO DAILY Glimepiride 4 Mg Tablet 4 Mg PO DAILY Instructions to patient/family Please see electronic discharge instructions given to patient. Clinical Quality Measures DVT/VTE Risk/Contraindication: Risk Factor Score Per Nursin RFS Level Per Nursing on Admit: 4+=Very High Problem Qualifiers (1) UTI (urinary tract infection): Urinary tract infection type: acute cystitis Hematuria presence: without hematuria Qualified Codes: N30.00 - Acute cystitis without hematuria (2) Hypothyroidism: Hypothyroidism type: acquired Qualified Codes: E03.9 - Hypothyroidism, unspecified DALTON MARMOLEJO DO December 06, 2017 09:51
[2017-12-06] MEDS: TROSPIUM 20 MG (SANCTURA) TAB PO SCH (09:57)
[2017-12-06] MEDS: ATENOLOL 50 MG (TENORMIN) TAB PO SCH (09:57)
[2017-12-06] MEDS: ENALAPRIL 5 MG (VASOTEC) TAB PO SCH (09:57)
[2017-12-06] MEDS: FLUTICASONE NASAL SPRAY (FLONASE) 16 GM BTL NS SCH (09:58)
[2017-12-06] MEDS: LEVOTHYROXINE 112 MCG (LEVOTHROID) TAB PO SCH (09:58)
[2017-12-06 11:45] VITALS: BP 178/78
== END 2017-12-06 11:45 | DRG 690 ==
LOC: 4TH 15:30
PROVIDERS: ADMIT Family Medicine; ATTEND Family Medicine
DX: N30.00 Acute cystitis without hematuria (principal); R41.0 Disorientation, unspecified; F22 Delusional disorders; I10 Essential (primary) hypertension; E11.9 Type 2 diabetes mellitus without complications; E03.9 Hypothyroidism, unspecified; E78.00 Pure hypercholesterolemia, unspecified; F32.9 Major depressive disorder, single episode, unspecified; Z79.4 Long term (current) use of insulin
CPT/HCPCS: 36415; 70450; 71045; 80048; 80053; 81000; 82962; 83605; 85025; 85610; 85730; 87040; 87088; 87804; 96360

== ENCOUNTER 2018-02-10 08:39 | Emergency (ER) | payer MEDICARE, OTHER ==
[~2018-02-10] VITALS: Ht 152.4 cm; Wt 63.5 kg
[~2018-02-10 08:39] MED LIST changes: +CEPH500C PO; +FENO160T12 PO; +QUET25TA73 PO
[2018-02-10] MEDS ORDERED: D5 NS 1000 ML IV SOLUTION 1,000 ML IV ONE ×2 (08:43→08:48)
--- NOTE | 2018-02-10 08:47 | ED General ---
General Stated Complaint: HYPOGLYCEMIC Source of Information: EMS, [facility] Records Exam Limitations: Other (PT IS CONFUSED ON ARRIVAL) History of Present Illness Date Seen by Provider: Feb 10, 2018 Time Seen by Provider: 08:38 Initial Comments PT ARRIVES VIA EMS FROM [facility] EMS WAS CALLED FOR PT WITH ALTERED MENTAL STATUS BLOOD GLUCOSE WAS 52 BY NURSING STAFF, AND PT WOULD NOT SWALLOW SARITA ACCUCHECK WAS 24 BY EMS EMS STARTED D50 IN BAG OF SALINE THEY REPORT THAT PT IS IMPROVING PT IS AWAKE BUT LETHARGIC, AND KNOWS SHE IS NOW IN HOSPITAL, NOT REALLY TALKING AND IS NOT ANSWERING ANY OTHER QUESTIONS FAMILY MEMBER ARRIVES AND REPORTS THAT PT'S BLOOD GLUCOSE WAS REALLY LOW YESTERDAY MORNING WELL SHE REPORTS THAT PT WAS IN [facility] 2 WEEKS AGO, AND THEY CHANGED HER INSULIN AND HAS BEEN ON A SLIDING SCALE SINCE SHE WAS DISMISSES SHE REPORTS THAT PT'S BLOOD SUGARS HAVE BEEN GOING HIGH INTO THE 400'S AND THEN DROPPING IN THE MORNINGS SHE WAS ALSO TREATED FOR UTI WHILE AT [place] PCP: ROSALIND REECE/DR. ARAGON Allergies and Home Medications Allergies Coded Allergies: No Known Drug Allergies (Unverified , 03/29/16) Home Medications Atenolol 50 Mg Tablet, 50 MG PO DAILY, (Reported) Citalopram Hydrobromide 20 Mg Tablet, 20 MG PO DAILY, (Reported) Enalapril Maleate 5 Mg Tablet, 5 MG PO DAILY, (Reported) Fenofibrate 160 Mg Tablet, 160 MG PO DAILY, (Reported) Glimepiride 4 Mg Tablet, 4 MG PO DAILY, (Reported) Levothyroxine Sodium 112 Mcg Tablet, 112 MCG PO DAILY, (Reported) Quetiapine Fumarate 25 Mg Tablet, 25-50 MG PO HS, (Reported) TAKES 1-2 OF A (25 MG) TABLET Solifenacin Succinate 5 Mg Tablet, 5 MG PO DAILY, (Reported) Patient Home Medication List Home Medication List Reviewed: Yes Review of Systems Constitutional: other (UNABLE TO ANSWER QUESTIONS ON ARRIVAL) Past Bgephsr-Whmygv-Plxrel Hx Patient Social History Recent Hopitalizations: No Seasonal Allergies Seasonal Allergies: No Past Medical History Surgeries: Yes Gallbladder Respiratory: No Cardiac: Yes High Cholesterol, Hypertension Neurological: No Genitourinary: No Gastrointestinal: No Musculoskeletal: No Endocrine: Yes Diabetes, Insulin dep, Hypothyroidsim Cancer: No Psychosocial: Yes (DELIRIUM, SEVERE PARANOIA, HALLUCINATIONS, PSYCHOSIS--WITH UTI'S BUT HAS BEEN IN [facility] IN PAST. ) Depression Integumentary: No Family Medical History Heart Disease Physical Exam Vital Signs Vital Signs - First Documented 02/10/18 08:40 Temp 96.5 Pulse 69 Resp 18 B/P (MAP) 148/64 (92) Pulse Ox 98 Capillary Refill : Height, Weight, BMI Height: 5'3.00" Weight: 134lbs.0.2oz.60.015106sc; 23.7 BMI Method:Estimated General Appearance: No Apparent Distress, Other (QUIET, SLIGHTLY DROWSY, AND CAN ANSWER A FEW YES/NO QUESTIONS BUT IS MODERATELY CONFUSED) HEENT: PERRL/EOMI Respiratory: Normal Breath Sounds Cardiovascular: Regular Rate, Rhythm, No Murmur Gastrointestinal: Soft Extremity: Normal Range of Motion, No Pedal Edema Neurologic/Psychiatric: No Motor/Sensory Deficits, Other (MENTATION NOTED ABOVE) Skin: Normal Color, Warm/Dry Progress/Results/Core Measures Suspected Sepsis SIRS Temperature: Pulse: Respiratory Rate: Laboratory Tests 02/10/18 08:47: White Blood Count 5.7 Blood Pressure / Mean: Laboratory Tests 02/10/18 08:47: Creatinine 1.04, Platelet Count 117L, Total Bilirubin 0.5 Results/Orders Lab Results Laboratory Tests Test 02/10/18 08:43 02/10/18 08:47 02/10/18 10:00 Range/Units Glucometer 157 H 70-110 MG/DL White Blood Count 5.7 4.3-11.0 10^3/uL Red Blood Count 3.52 L 4.35-5.85 10^6/uL Hemoglobin 10.4 L 11.5-16.0 G/DL Hematocrit 31 L 35-52 % Mean Corpuscular Volume 88 80-99 FL Mean Corpuscular Hemoglobin 30 25-34 PG Mean Corpuscular Hemoglobin Concent 34 32-36 G/DL Red Cell Distribution Width 14.9 H 10.0-14.5 % Platelet Count 117 L 130-400 10^3/uL Mean Platelet Volume 11.8 H 7.4-10.4 FL Neutrophils (%) (Auto) 71 42-75 % Lymphocytes (%) (Auto) 21 12-44 % Monocytes (%) (Auto) 7 0-12 % Eosinophils (%) (Auto) 1 0-10 % Basophils (%) (Auto) 0 0-10 % Neutrophils # (Auto) 4.0 1.8-7.8 X 10^3 Lymphocytes # (Auto) 1.2 1.0-4.0 X 10^3 Monocytes # (Auto) 0.4 0.0-1.0 X 10^3 Eosinophils # (Auto) 0.0 0.0-0.3 10^3/uL Basophils # (Auto) 0.0 0.0-0.1 10^3/uL Sodium Level 141 135-145 MMOL/L Potassium Level 4.1 3.6-5.0 MMOL/L Chloride Level 111 H 98-107 MMOL/L Carbon Dioxide Level 23 21-32 MMOL/L Anion Gap 7 5-14 MMOL/L Blood Urea Nitrogen 15 7-18 MG/DL Creatinine 1.04 0.60-1.30 MG/DL Estimat Glomerular Filtration Rate 50 BUN/Creatinine Ratio 14 Glucose Level 189 H 70-105 MG/DL Calcium Level 8.4 L 8.5-10.1 MG/DL Total Bilirubin 0.5 0.1-1.0 MG/DL Aspartate Amino Transf (AST/SGOT) 30 5-34 U/L Alanine Aminotransferase (ALT/SGPT) 13 0-55 U/L Alkaline Phosphatase 36 L 40-136 U/L Total Protein 5.3 L 6.4-8.2 GM/DL Albumin 3.3 3.2-4.5 GM/DL Amylase Level 74 25-125 U/L Lipase 6 L 8-78 U/L Urine Color YELLOW Urine Clarity CLEAR Urine pH 5 5-9 Urine Specific [place] 1.015 L 1.016-1.022 Urine Protein NEGATIVE NEGATIVE Urine Glucose (UA) 3+ H NEGATIVE Urine Ketones NEGATIVE NEGATIVE Urine Nitrite NEGATIVE NEGATIVE Urine Bilirubin NEGATIVE NEGATIVE Urine Urobilinogen NORMAL NORMAL MG/DL Urine Leukocyte Esterase NEGATIVE NEGATIVE Urine RBC (Auto) NEGATIVE NEGATIVE Urine RBC NONE /HPF Urine WBC 0-2 /HPF Urine Squamous Epithelial Cells RARE /HPF Urine Renal Epithelial Cells NONE /HPF Urine Crystals NONE /LPF Urine Bacteria NEGATIVE /HPF Urine Casts PRESENT /LPF Urine Hyaline Casts RARE /LPF Urine Mucus NEGATIVE /LPF Urine Culture Indicated NO My Orders Orders - MJ RUBIO DO Accucheck Stat ONCE (02/10/18 08:43) Saline Lock/Iv-Start (02/10/18 08:43) Monitor-Rhythm Ecg Trace Only (02/10/18 08:43) Amylase (02/10/18 08:43) Cbc With Automated Diff (02/10/18 08:43) Comprehensive Metabolic Panel (02/10/18 08:43) Lipase (02/10/18 08:43) Ua Culture If Indicated (02/10/18 08:43) Saline Lock/Iv-Start (02/10/18 08:43) D5 Ns 1000 Ml Iv Solution (Dextrose 5%/0 (02/10/18 08:43) D5 Ns 1000 Ml Iv Solution (Dextrose 5%/0 (02/10/18 08:48) General/Regular (02/10/18 Breakfast) Medications Given in ED Vital Signs/I&O 02/10/18 11:05 Pulse 80 Resp 18 B/P (MAP) 148/65 Pulse Ox 98 Capillary Refill : Progress Note : Progress Note 2114--PT NOW ALERT AND TALKING AND BACK TO NORMAL BASELINE, PER FAMILY. PT STATES SHE IS HUNGRY. MEAL TRAY ORDERED. NO DETERIORATION IN PT'S CONDITION DURING ER STAY Departure Impression Primary Impression: Hypoglycemia associated with diabetes Additional Impression: Insulin dependent diabetes mellitus Disposition: 01 HOME, SELF-CARE Condition: Improved Departure-Patient Inst. Referrals: FREDDY ARAGON DO (PCP/Family) Primary Care Physician Patient Instructions: Low Blood Sugar, Adult (DC), Type 2 Diabetes Add. Discharge Instructions: FOLLOW UP WITH DR. ARAGON FOR INSULIN REGULATION CONTINUE YOUR REGULAR MEDICATIONS PRESCRIBED HIGH PROTEIN SNACK AT BEDTIME MJ RUBIO DO Feb 10, 2018 08:47
[2018-02-10 08:55] LABS: BASOPHILS % (AUTO) 0 % (0-10); EOSINOPHILS % (AUTO) 1 % (0-10); HEMATOCRIT 31 % (35-52); HEMOGLOBIN 10.4 G/DL (11.5-16.0); LYMPHOCYTES # (AUTO) 1.2 X 10^3 (1.0-4.0); LYMPHOCYTES % (AUTO) 21 % (12-44); MEAN CORPUSCULAR HEMOGLOBIN 30 PG (25-34); MEAN CORPUSCULAR HGB CONC 34 G/DL (32-36); MEAN CORPUSCULAR VOLUME 88 FL (80-99); MEAN PLATELET VOLUME 11.8 FL (7.4-10.4); MONOCYTES # (AUTO) 0.4 X 10^3 (0.0-1.0); MONOCYTES % (AUTO) 7 % (0-12); NEUTROPHILS % (AUTO) 71 % (42-75); PLATELET COUNT 117 10^3/uL (130-400); RED BLOOD COUNT 3.52 10^6/uL (4.35-5.85); RED CELL DISTRIBUTION WIDTH 14.9 % (10.0-14.5); WHITE BLOOD COUNT 5.7 10^3/uL (4.3-11.0)
[2018-02-10 09:14] LABS: ALBUMIN 3.3 GM/DL (3.2-4.5); BILIRUBIN,TOTAL 0.5 MG/DL (0.1-1.0); CALCIUM 8.4 MG/DL (8.5-10.1); CREATININE SERUM 1.04 MG/DL (0.60-1.30); POTASSIUM 4.1 MMOL/L (3.6-5.0); TOTAL PROTEIN 5.3 GM/DL (6.4-8.2)
[2018-02-10 10:09] LABS: BILIRUBIN,URINE NEGATIVE (NEGATIVE); CLARITY,URINE CLEAR; COLOR,URINE YELLOW; GLUCOSE, URINE (UA) 3+ (NEGATIVE); KETONES,URINE NEGATIVE (NEGATIVE); LEUKOCYTE ESTERASE ,URINE NEGATIVE (NEGATIVE); NITRITE,URINE NEGATIVE (NEGATIVE); PH,URINE 5 (5-9); PROTEIN,URINE NEGATIVE (NEGATIVE); UROBILINOGEN,URINE NORMAL (NORMAL)
[2018-02-10 10:39] LABS: BACTERIA,URINE NEGATIVE /HPF; HYALINE CASTS, URINE RARE /LPF; SQUAMOUS EPITHELIAL CELL,UR RARE /HPF; WBC,URINE 0-2 /HPF
[2018-02-10 11:05] VITALS: BP 148/65
== END 2018-02-10 11:05 | disposition home or self-care (01) ==
LOC: EDUNIT# 08:39 → ER 08:40
DX: E11.649 Type 2 diabetes mellitus with hypoglycemia without coma (principal); E78.00 Pure hypercholesterolemia, unspecified; I10 Essential (primary) hypertension; F32.9 Major depressive disorder, single episode, unspecified; E03.9 Hypothyroidism, unspecified; F22 Delusional disorders; Z82.49 Family history of ischemic heart disease and other diseases of the circulatory system; Z87.440 Personal history of urinary (tract) infections; Z79.84 Long term (current) use of oral hypoglycemic drugs
CPT/HCPCS: 36415; 51701; 80053; 81000; 82150; 82962; 83690; 85025; 93041; 96360; 96361

== ENCOUNTER → 2019-05-24 | Outpatient (CLI) | payer MEDICARE, OTHER ==
--- NOTE | 2019-05-24 16:45 | Diagnostic Imaging Report ---
Patient History: SHORTNESS OF BREATH. Technique: Two views of the chest Comparison: 11/29/2017 FINDINGS: Chronic COPD findings are noted. No focal consolidation is seen. No large pleural effusion or pneumothorax is seen. Stable cardiomegaly. The central pulmonary vasculature is within normal limits. There is calcified aortic atherosclerotic plaque. Age-indeterminate wedging is seen in the vertebral bodies of the lower thoracic spine. IMPRESSION: 1. Cardiomegaly without evidence of pulmonary edema. No focal consolidation or mass. 2. Chronic COPD findings. Dictated by: Dictated on workstation # [id number]
== END ==
LOC: RAD 14:45
PROVIDERS: ATTEND Nurse Practitioner Family
DX: I51.7 Cardiomegaly (principal); J44.9 Chronic obstructive pulmonary disease, unspecified
CPT/HCPCS: 71046

== ENCOUNTER 2019-06-01 08:55 | Inpatient (IN) | payer MEDICARE, OTHER ==
[~2019-06-01] VITALS: Ht 165.1 cm; Wt 67.9 kg
--- NOTE | 2019-06-01 09:10 | NUR ---
yellow/purple discoloration noted to pt's L back. Dr Hurtado notified.
[2019-06-01] MEDS ORDERED: NS IV 500 ML 500 ML IV ONE (09:14)
[2019-06-01 09:27] LABS: BASOPHILS % (AUTO) 0 % (0-10); EOSINOPHILS # (AUTO) 0.3 10^3/uL (0.0-0.3); EOSINOPHILS % (AUTO) 3 % (0-10); HEMATOCRIT 41 % (35-52); HEMOGLOBIN 13.5 G/DL (11.5-16.0); LYMPHOCYTES # (AUTO) 2.5 X 10^3 (1.0-4.0); LYMPHOCYTES % (AUTO) 28 % (12-44); MEAN CORPUSCULAR HEMOGLOBIN 30 PG (25-34); MEAN CORPUSCULAR HGB CONC 33 G/DL (32-36); MEAN CORPUSCULAR VOLUME 89 FL (80-99); MEAN PLATELET VOLUME 11.5 FL (7.4-10.4); MONOCYTES # (AUTO) 0.7 X 10^3 (0.0-1.0); MONOCYTES % (AUTO) 7 % (0-12); NEUTROPHILS # (AUTO) 5.5 X 10^3 (1.8-7.8); NEUTROPHILS % (AUTO) 61 % (42-75); PLATELET COUNT 140 10^3/uL (130-400); RED CELL DISTRIBUTION WIDTH 14.7 % (10.0-14.5)
[2019-06-01 09:41] LABS: ALANINE AMINOTRANSFERASE 9 U/L (0-55); ALBUMIN 3.6 GM/DL (3.2-4.5); ALKALINE PHOSPHATASE 62 U/L (40-136); BILIRUBIN,TOTAL 0.8 MG/DL (0.1-1.0); BUN/CREATININE RATIO 14; CARBON DIOXIDE 25 MMOL/L (21-32); CHLORIDE 103 MMOL/L (98-107); GFR ESTIMATED > 60; GLUCOSE 170 MG/DL (70-105); POTASSIUM 4.8 MMOL/L (3.6-5.0); SODIUM 138 MMOL/L (135-145); TOTAL PROTEIN 5.9 GM/DL (6.4-8.2)
[2019-06-01 09:51] LABS: BILIRUBIN,URINE NEGATIVE (NEGATIVE); CLARITY,URINE CLEAR; COLOR,URINE YELLOW; GLUCOSE, URINE (UA) NEGATIVE (NEGATIVE); KETONES,URINE NEGATIVE (NEGATIVE); LEUKOCYTE ESTERASE ,URINE NEGATIVE (NEGATIVE); NITRITE,URINE NEGATIVE (NEGATIVE); PH,URINE 7 (5-9); PROTEIN,URINE NEGATIVE (NEGATIVE)
[2019-06-01 10:08] LABS: BACTERIA,URINE NEGATIVE /HPF; SQUAMOUS EPITHELIAL CELL,UR RARE /HPF
--- NOTE | 2019-06-01 10:13 | Diagnostic Imaging Report ---
INDICATION: Weakness. Upright portable AP view of the chest is obtained. Since 05/24/2019, there has been mild increase in cardiomegaly and pulmonary venous congestion. There is mild increased density in the left perihilar region. No pneumothorax is identified. Advanced degenerative findings are seen in the shoulders. IMPRESSION: Findings are suggestive of congestive heart failure with mild developing pulmonary edema. Dictated by: Dictated on workstation # [id number]
--- NOTE | 2019-06-01 10:19 | ED General ---
General Chief Complaint: Neurological Problems Stated Complaint: WEAKNESS Source of Information: Patient, EMS Exam Limitations: Physical Impairments History of Present Illness Date Seen by Provider: Jun 01, 2019 Time Seen by Provider: 09:04 Initial Comments Here with report of episode of becoming quite weak. Apparently she was being a ssisted at the alf when she became nearly unresponsive. EMS reports that patient actually just has some global weakness and there is no unresponsiveness. She is very hard of hearing but answers questions and follows simple commands. Review of systems Limited but patient complains of no pain or breathing problems. Timing/Duration: 1 Hour Severity: Moderate Modifying Factors: improves with Rest Associated Systoms: No Chest Pain, No Fever/Chills, No Nausea/Vomiting, No Shortness of Air; Weakness Allergies and Home Medications Allergies Coded Allergies: No Known Drug Allergies (Unverified , 03/29/16) Home Medications Acetaminophen 325 Mg Tablet, 650 MG PO BID PRN for PAIN-MILD, (Reported) Amlodipine Besylate 10 Mg Tablet, 10 MG PO DAILY Prescribed by: BIRGIT COTE on 06/02/19 1223 Benztropine Mesylate 0.5 Mg Tablet, 0.5 MG PO TID Prescribed by: BIRGIT COTE on 06/02/19 1223 Cetirizine HCl 10 Mg Tablet, 10 MG PO DAILY, (Reported) Cholecalciferol (Vitamin D3) 1,000 Unit Capsule, 1,000 UNIT PO DAILY, (Reported) Citalopram Hydrobromide 20 Mg Tablet, 20 MG PO HS, (Reported) Ferrous Sulfate 325 Mg Tablet, 325 MG PO DAILY, (Reported) Fluticasone Propionate 16 Gm [place].susp, 1 SPRAY NS UD PRN for CONGESTION, (Reported) Furosemide 20 Mg Tablet, 20 MG PO DAILY PRN for EDEMA, (Reported) Insulin Aspart 300 Units/3 Ml Solution, SC TIDAC, (Reported) 201-250 = 3 UNITS 251-300 = 5 UNITS 301-350 = 7 UNITS 351-400 = 9 UNITS >401 CALL Insulin Detemir 100 Unit/1 Ml Insuln.pen, 8 UNITS SC DAILY, (Reported) Ketotifen Fumarate 5 Ml Drops, 1 DROP OU BID, (Reported) Lactulose 20 Gm/30 Ml Solution, 30 ML PO UD PRN for CONSTIPATION-3RD LINE, (Reported) Levothyroxine Sodium 112 Mcg Tablet, 112 MCG PO DAILY, (Reported) Lorazepam 1 Mg Tablet, 1 MG PO DAILY PRN for ANXIETY, (Reported) Potassium Chloride 10 Meq Tab.er.prt, 10 MEQ PO DAILY PRN for WHEN TAKING FUROSEMIDE, (Reported) Risperidone 0.25 Mg Tablet, 0.25 MG PO BID, (Reported) Solifenacin Succinate 5 Mg Tablet, 5 MG PO DAILY, (Reported) Patient Home Medication List Home Medication List Reviewed: Yes Review of Systems Review of Systems Constitutional: see HPI; No chills, No fever Respiratory: No cough, No short of breath Cardiovascular: No chest pain, No edema Psychiatric/Neurological: Weakness Unable to complete review of systems due to weakness and underlying medical condition. Past Gonyfeq-Plirgp-Uhyizp Hx Past Med/Social Hx: Reviewed Nursing Past Med/Soc Hx Patient Social History Recent Hopitalizations: No Seasonal Allergies Seasonal Allergies: No Past Medical History Surgeries: Yes Gallbladder Respiratory: No Cardiac: Yes High Cholesterol, Hypertension Neurological: Yes Dementia Genitourinary: Yes UTI-Chronic Gastrointestinal: No Musculoskeletal: No Endocrine: Yes Diabetes, Insulin dep, Hypothyroidsim Cancer: No Psychosocial: Yes Anxiety, Depression Integumentary: No Family Medical History Reviewed Nursing Family Hx Heart Disease Physical Exam Vital Signs Vital Signs - First Documented 06/01/19 08:55 Temp 36.7 Pulse 58 Resp 14 B/P (MAP) 190/78 (115) Pulse Ox 98 O2 Delivery Room Air Capillary Refill : Height, Weight, BMI Height: 5'3.00" Weight: 140lbs. 0.2oz. 63.663854jk; 23.7 BMI Method:Stated General Appearance: No Apparent Distress, WD/WN HEENT: PERRL/EOMI, Pharynx Normal Neck: Non Tender, Supple Respiratory: Lungs Clear, Normal Breath Sounds Cardiovascular: No Murmur, Bradycardia Gastrointestinal: Non Tender, Soft Back: Normal Inspection, No CVA Tenderness, No Vertebral Tenderness Extremity: Normal Range of Motion, Non Tender Neurologic/Psychiatric: Alert, Oriented x3 Skin: Normal Color, Warm/Dry Progress/Results/Core Measures Suspected Sepsis SIRS Temperature: Pulse: Respiratory Rate: Laboratory Tests 06/01/19 09:05: White Blood Count 9.0 06/02/19 04:15: White Blood Count 9.6 Blood Pressure / Mean: Laboratory Tests 06/01/19 09:05: Creatinine 0.80, Platelet Count 140, Total Bilirubin 0.8 06/02/19 04:15: Creatinine 0.91, Platelet Count 142, Total Bilirubin 0.8 Results/Orders Lab Results Laboratory Tests Test 06/01/19 09:05 06/01/19 09:40 06/01/19 20:33 06/02/19 04:15 Range/Units White Blood Count 9.0 9.6 4.3-11.0 10^3/uL Red Blood Count 4.56 4.39 4.35-5.85 10^6/uL Hemoglobin 13.5 12.8 11.5-16.0 G/DL Hematocrit 41 39 35-52 % Mean Corpuscular Volume 89 89 80-99 FL Mean Corpuscular Hemoglobin 30 29 25-34 PG Mean Corpuscular Hemoglobin Concent 33 33 32-36 G/DL Red Cell Distribution Width 14.7 H 14.6 H 10.0-14.5 % Platelet Count 140 142 130-400 10^3/uL Mean Platelet Volume 11.5 H 11.2 H 7.4-10.4 FL Neutrophils (%) (Auto) 61 52 42-75 % Lymphocytes (%) (Auto) 28 36 12-44 % Monocytes (%) (Auto) 7 9 0-12 % Eosinophils (%) (Auto) 3 2 0-10 % Basophils (%) (Auto) 0 0 0-10 % Neutrophils # (Auto) 5.5 5.0 1.8-7.8 X 10^3 Lymphocytes # (Auto) 2.5 3.5 1.0-4.0 X 10^3 Monocytes # (Auto) 0.7 0.9 0.0-1.0 X 10^3 Eosinophils # (Auto) 0.3 0.2 0.0-0.3 10^3/uL Basophils # (Auto) 0.0 0.0 0.0-0.1 10^3/uL Sodium Level 138 140 135-145 MMOL/L Potassium Level 4.8 4.2 3.6-5.0 MMOL/L Chloride Level 103 102 98-107 MMOL/L Carbon Dioxide Level 25 26 21-32 MMOL/L Anion Gap 10 12 5-14 MMOL/L Blood Urea Nitrogen 11 17 7-18 MG/DL Creatinine 0.80 0.91 0.60-1.30 MG/DL Estimat Glomerular Filtration Rate > 60 59 BUN/Creatinine Ratio 14 19 Glucose Level 170 H 210 H 70-105 MG/DL Calcium Level 9.0 8.9 8.5-10.1 MG/DL Corrected Calcium 9.3 9.4 8.5-10.1 MG/DL Total Bilirubin 0.8 0.8 0.1-1.0 MG/DL Aspartate Amino Transf (AST/SGOT) 14 13 5-34 U/L Alanine Aminotransferase (ALT/SGPT) 9 < 6 0-55 U/L Alkaline Phosphatase 62 73 40-136 U/L Troponin I < 0.028 <0.028 NG/ML C-Reactive Protein High Sensitivity 0.13 0.00-0.50 MG/DL B-Type Natriuretic Peptide 698.5 H <100.0 PG/ML Total Protein 5.9 L 5.6 L 6.4-8.2 GM/DL Albumin 3.6 3.4 3.2-4.5 GM/DL Urine Color YELLOW Urine Clarity CLEAR Urine pH 7 5-9 Urine Specific [place] 1.010 L 1.016-1.022 Urine Protein NEGATIVE NEGATIVE Urine Glucose (UA) NEGATIVE NEGATIVE Urine Ketones NEGATIVE NEGATIVE Urine Nitrite NEGATIVE NEGATIVE Urine Bilirubin NEGATIVE NEGATIVE Urine Urobilinogen NORMAL NORMAL MG/DL Urine Leukocyte Esterase NEGATIVE NEGATIVE Urine RBC (Auto) NEGATIVE NEGATIVE Urine RBC NONE /HPF Urine WBC NONE /HPF Urine Squamous Epithelial Cells RARE /HPF Urine Crystals NONE /LPF Urine Bacteria NEGATIVE /HPF Urine Casts NONE /LPF Urine Mucus NEGATIVE /LPF Urine Culture Indicated NO Glucometer 319 H 70-110 MG/DL Magnesium Level 1.8 1.6-2.4 MG/DL Test 06/02/19 09:39 Range/Units Glucometer 274 H 70-110 MG/DL My Orders Orders - NORRIS SÁNCHEZ MD Chest 1 View, Ap/Pa Only (06/01/19 09:14) Cbc With Automated Diff (06/01/19 09:14) Comprehensive Metabolic Panel (06/01/19 09:14) Hs C Reactive Protein (06/01/19 09:14) Ua Culture If Indicated (06/01/19 09:14) Straight Cath For Spec.-Adult (06/01/19 09:14) Ed Iv/Invasive Line Start (06/01/19 09:14) Ns Iv 500 Ml (Sodium Chloride 0.9%) (06/01/19 09:14) Ekg Tracing (06/01/19 09:14) Troponin I (06/01/19 09:16) BNP (06/01/19 10:18) Furosemide Injection (Lasix Injection) (06/01/19 11:37) Orthostatic Vital Signs (Adult (06/01/19 11:37) Echo W Doppler/Color Flow (06/01/19 12:06) Medications Given in ED Vital Signs/I&O 06/02/19 06/02/19 06/02/19 06/02/19 07:00 08:00 08:00 08:00 Temp 37.0 37.0 Pulse 58 72 72 Resp 24 24 B/P (MAP) 170/70 (103) 170/70 (103) Pulse Ox 93 92 O2 Delivery Room Air Room Air Room Air 06/02/19 06/02/19 12:00 13:00 Temp 36.8 Pulse 76 78 Resp 22 B/P (MAP) 145/68 (93) Pulse Ox 96 O2 Delivery Room Air Capillary Refill : Progress Note : Progress Note Seen and evaluated. IV, labs, EKG and chest x-ray. Normal saline 500 mL bolus. Monitor patient. 1110: New Left bundle branch block noted. Chest x-ray indicative of pulmonary edema. BNP added and is positive. 1113: I did discuss the case with Dr. Cote and she accepts patient for admission, inpatient status. Request consult with Dr. Ambrosio as she has never had cardiology evaluation and she has rhythm change as well as bradycardia and new onset heart failure. She did have office visit and labs last week which showed slightly elevated TSH but normal T4 so we did not repeat thyroid studies. 1133: I did discuss the case with Dr. Ambrosio and he accepts patient for consult. Recommends Lasix 40 mg IV times one now. We will order 2-D cardiac echo and he will evaluate further from there. Discussed with family who agrees with plan. Dr. Ambrosio did request orthostatic vital signs. These were negative for the lying and sitting. Lying was blood pressure 190/88 with heart rate of 71 and sitting was blood pressure 189/87 with heart rate of 62. We did not stand her because of the generalized weakness. ECG Initial ECG Impression Date: Jun 01, 2019 Initial ECG Impression Time: 09:22 Initial ECG Rate: 48 Initial ECG Rhythm: S.Juan Daniel Comment Sinus bradycardia with left bundle branch block. New from . No evidence of ST elevation [place]. Interpreted by me. Diagnostic Imaging Diagonstic Imaging: Xray Plain Films/CT/US/NM/MRI: chest Comments [facility]. POS [place], [place] POS NAME: REAGAN BATES [facility] REC#: [id number] PT STATUS: REG ER : 1930 PHYSICIAN: NORRIS SÁNCHEZ MD ADMIT DATE: 06/01/19/ER Draft POSDate of Exam:06/01/19 CHEST 1 VIEW, AP/PA ONLY INDICATION: Weakness. Upright portable AP view of the chest is obtained. Since 05/24/2019, there has been mild increase in cardiomegaly and pulmonary venous congestion. There is mild increased density in the left perihilar region. No pneumothorax is identified. Advanced degenerative findings are seen in the shoulders. IMPRESSION: Findings are suggestive of congestive heart failure with mild developing pulmonary edema. Dictated on workstation # [id number] Dict: 06/01/19 1007 Trans: 06/01/19 1013 [facility] [id number] Interpreted by: CONSTANTINO CROWDER MD Electronically signed by: Reviewed: Reviewed by Me Departure Communication (Admissions) Time/Spoke to Admitting Phy: 11:13 Time/Spoke to Consulting Phy: 11:33 Impression Primary Impression: New onset left bundle branch block (LBBB) Additional Impressions: Acute heart failure Qualified Codes: I50.9 - Heart failure, unspecified Generalized weakness Disposition: ADMITTED INPATIENT Condition: Stable Admissions Decision to Admit Reason: Admit from ER (General) Decision to Admit/Date: Jun 01, 2019 Time/Decision to Admit Time: 11:13 Departure-Patient Inst. Referrals: BIRGIT COTE MD (PCP/Family) Primary Care Physician Scripts Amlodipine Besylate (Amlodipine Besylate) 10 Mg Tablet 10 MG PO DAILY, #30 TAB 6 Refills Prov: BIRGIT COTE MD 06/02/19 Benztropine Mesylate (Benztropine Mesylate) 0.5 Mg Tablet 0.5 MG PO TID, #90 TAB 6 Refills Prov: BIRGIT COTE MD 06/02/19 NORRIS SÁNCHEZ MD Jun 01, 2019 10:19 POS
[2019-06-01] MEDS ORDERED: FUROSEMIDE 40 MG/4 ML INJ (LASIX) IV STA (11:37)
[2019-06-01 11:50] VITALS: BP_SYST 189; BP_SYST 190; BP_DIAS 87; BP_DIAS 88
--- NOTE | 2019-06-01 11:51 | NUR ---
unable to perform standing ortho vitals at this time
--- NOTE | 2019-06-01 12:25 | NUR ---
Attempted to call report; nurse unavailable.
--- NOTE | 2019-06-01 13:00 | NUR ---
REAGAN BATES admitted to room 414-1, with an admitting diagnosis of hear failure/generalized weakness, on 06/01/19 from ED via stretcher, accompanied by staff .REAGAN BATES introduced to surroundings, call light, bed controls, phone, TV, temperature control, lights, meal times, smoking policy, visitor policy, side rail policy, bathrooms and showers. Patient Rights given to patient in the handbook. REAGAN BATES verbalizes understanding that [facility] is not responsible for the loss or damage to any personal effects or valuables that are kept in the patients posession during their hospitalization. The following Patient Care Plans and discharge were discussed with the patient. REAGAN BATES verbalizes understanding of Interdisciplinary Patient Education. Patient and family were informed about the Rapid Response Team and its purpose.
[2019-06-01 13:13] VITALS: BP 178/82
--- NOTE | 2019-06-01 13:23 | Consultation-Cardiology ---
HPI-Cardiology Cardiology Consultation: Date of Consultation 06/01/19 Time Seen by a Provider: 12:50 Date of Admission Attending Physician Jenn Cote MD Admitting Physician Jenn Cote MD Consulting Physician MAYCOL COLLIER MD, MA, FACP, FACC, FSCAI, CCDS HPI: Chief Complaint: Reason for consultation: Elevated BNP, LBBB HPI 88 yo woman, resident of a local [place], sent to ER for gen weakness and poor resp onsiveness. She was diagnosed with CHF (based on BNP) and new LBBB (compared to an ECG of 2016). She herself is not able to provide much history. Does not report chest pain, palp, syncope, or shortness of breath, but she is poorly responsive and responses provided cannot be relied on Review of Systems-Cardiology Review of Systems Constitutional: other (she responds in negative to all questions of review of systems, but these responses cannot be relied on because she appears consfused) QFZ-Nothio-Hiryfn Hx Patient Social History Alcohol Use: Denies Use Recreational Drug Use: No 2nd Hand Smoke Exposure: No Recent Foreign Travel: No Recent Infectious Disease Expo: No Hospitalization with Isolation: Denies Past Medical History PMH As described under Assessment. Family Medical History Family Medical History: She does not provide any fam history Allergies and Home Medications Allergies Coded Allergies: No Known Drug Allergies (Unverified , 03/29/16) Home Medications Atenolol 50 Mg Tablet, 50 MG PO DAILY, (Reported) Citalopram Hydrobromide 20 Mg Tablet, 20 MG PO DAILY, (Reported) Enalapril Maleate 5 Mg Tablet, 5 MG PO DAILY, (Reported) Fenofibrate 160 Mg Tablet, 160 MG PO DAILY, (Reported) Glimepiride 4 Mg Tablet, 4 MG PO DAILY, (Reported) Levothyroxine Sodium 112 Mcg Tablet, 112 MCG PO DAILY, (Reported) Quetiapine Fumarate 25 Mg Tablet, 25-50 MG PO HS, (Reported) TAKES 1-2 OF A (25 MG) TABLET Solifenacin Succinate 5 Mg Tablet, 5 MG PO DAILY, (Reported) Patient Home Medication List Home Medication List Reviewed: Yes Physical Exam-Cardiology Physical Exam Vital Signs/I&O 06/01/19 06/01/19 06/01/19 08:55 11:50 12:45 Temp 36.7 36.7 Pulse 58 71 60 61 Resp 14 14 B/P (MAP) 190/78 (115) 190/88 (122) 155/62 (121) 189/87 (121) Pulse Ox 98 98 O2 Delivery Room Air Room Air Capillary Refill : Less Than 3 Seconds Constitutional: No AAO x 3, No apparent distress; well-developed, well- nourished HEENT: PERRL, EOMI; No xanthelasmas are seen Neck: carotid pulses are 2 + bilaterally, with good upstrokes Respiratory: No accessory muscle use; other (good bilat air enty) Cardiovascular: regular rate-rhythm, S1 and S2, systolic murmur (soft EMMANUEL at card base) Gastrointestinal: No tender; soft; No guarding, No rebound; audible bowel sounds Extremities: No clubbing, No cyanosis, No significant edema Neurologic/Psychiatric: No oriented x 3; other (seems to move all limbs equally) Skin: No rash on exposed areas, No ulcerations on exposed areas Data Review Labs Laboratory Tests 06/01/19 09:05: White Blood Count 9.0, Red Blood Count 4.56, Hemoglobin 13.5, Hematocrit 41, Mean Corpuscular Volume 89, Mean Corpuscular Hemoglobin 30, Mean Corpuscular Hemoglobin Concent 33, Red Cell Distribution Width 14.7H, Platelet Count 140, Mean Platelet Volume 11.5H, Neutrophils (%) (Auto) 61, Lymphocytes (%) (Auto) 28, Monocytes (%) (Auto) 7, Eosinophils (%) (Auto) 3, Basophils (%) (Auto) 0, Neutrophils # (Auto) 5.5, Lymphocytes # (Auto) 2.5, Monocytes # (Auto) 0.7, Eosinophils # (Auto) 0.3, Basophils # (Auto) 0.0, Sodium Level 138, Potassium Level 4.8, Chloride Level 103, Carbon Dioxide Level 25, Anion Gap 10, Blood Urea Nitrogen 11, Creatinine 0.80, Estimat Glomerular Filtration Rate > 60, B UN/Creatinine Ratio 14, Glucose Level 170H, Calcium Level 9.0, Corrected Calcium 9.3, Total Bilirubin 0.8, Aspartate Amino Transf (AST/SGOT) 14, Alanine Aminotransferase (ALT/SGPT) 9, Alkaline Phosphatase 62, Troponin I < 0.028, C- Reactive Protein High Sensitivity 0.13, B-Type Natriuretic Peptide 698.5H, Total Protein 5.9L, Albumin 3.6 06/01/19 09:40: Urine Color YELLOW, Urine Clarity CLEAR, Urine pH 7, Urine Specific [place] 1.010L, Urine Protein NEGATIVE, Urine Glucose (UA) NEGATIVE, Urine Ketones NEGATIVE, Urine Nitrite NEGATIVE, Urine Bilirubin NEGATIVE, Urine Urobilinogen NORMAL, Urine Leukocyte Esterase NEGATIVE, Urine RBC (Auto) NEGATIVE, Urine RBC NONE, Urine WBC NONE, Urine Squamous Epithelial Cells RARE, Urine Crystals NONE, Urine Bacteria NEGATIVE, Urine Casts NONE, Urine Mucus NEGATIVE, Urine Culture Indicated NO Laboratory Tests 06/01/19 09:05 A/P-Cardiology Assessment/Admission Diagnosis Hypertension LBBB, probably chronic, no evidence of ACS CHF, probably chronic, 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
[2019-06-01] MEDS ORDERED: amLODIPine 10 MG (NORVASC) TAB PO NR (13:30)
[2019-06-01] MEDS ORDERED: CATHETER FLUSH 10 ML SYR IV PRN (13:30)
[2019-06-01] MEDS: CATHETER FLUSH 10 ML SYR IV SCH ×2 (14:21→20:41)
[2019-06-01] MEDS: inSUlin ASPART (NovoLOG) 1 UNIT/0.01 ML (CHARGE PER UNIT) SC SCH ×2 (14:39→20:40)
[2019-06-01 15:50] VITALS: BP 125/73
[2019-06-01] MEDS ORDERED: RISP0.253 PO (15:55)
[2019-06-01] MEDS ORDERED: CHOL10007 PO (15:55)
[2019-06-01] MEDS ORDERED: FURO20TA4 PO (15:55)
[2019-06-01] MEDS ORDERED: ACET325T38 PO (15:55)
[2019-06-01] MEDS ORDERED: POTA10TA36 PO (15:55)
[2019-06-01] MEDS ORDERED: FLUT16SP22 NS (15:55)
[2019-06-01] MEDS ORDERED: LORA-405 PO (15:55)
[2019-06-01] MEDS ORDERED: CETI10TA17 PO (15:55)
[2019-06-01] MEDS ORDERED: INSU100I14 SC (15:55)
[2019-06-01] MEDS ORDERED: KETO5DRO70 OU (15:55)
[2019-06-01] MEDS ORDERED: FERR-84 PO (15:55)
[2019-06-01] MEDS ORDERED: INSU100I29 SC (15:55)
[2019-06-01] MEDS ORDERED: LACT20SO2 PO (15:55)
[2019-06-01] MEDS ORDERED: BENZ0.5T42 PO (15:55)
--- NOTE | 2019-06-01 15:59 | NUR ---
UPDATED MED REC WITH MEDICATION LIST FROM [facility].
[2019-06-01 19:37] VITALS: BP 178/74
[2019-06-02 00:22] VITALS: BP 148/66
[2019-06-02 04:30] VITALS: BP 165/79
[2019-06-02 04:40] LABS: BASOPHILS % (AUTO) 0 % (0-10); EOSINOPHILS # (AUTO) 0.2 10^3/uL (0.0-0.3); EOSINOPHILS % (AUTO) 2 % (0-10); HEMATOCRIT 39 % (35-52); HEMOGLOBIN 12.8 G/DL (11.5-16.0); LYMPHOCYTES # (AUTO) 3.5 X 10^3 (1.0-4.0); LYMPHOCYTES % (AUTO) 36 % (12-44); MEAN CORPUSCULAR HEMOGLOBIN 29 PG (25-34); MEAN CORPUSCULAR HGB CONC 33 G/DL (32-36); MEAN CORPUSCULAR VOLUME 89 FL (80-99); MEAN PLATELET VOLUME 11.2 FL (7.4-10.4); MONOCYTES # (AUTO) 0.9 X 10^3 (0.0-1.0); MONOCYTES % (AUTO) 9 % (0-12); NEUTROPHILS % (AUTO) 52 % (42-75); PLATELET COUNT 142 10^3/uL (130-400); RED CELL DISTRIBUTION WIDTH 14.6 % (10.0-14.5); WHITE BLOOD COUNT 9.6 10^3/uL (4.3-11.0)
[2019-06-02 04:58] LABS: ALANINE AMINOTRANSFERASE < 6 U/L (0-55); ALBUMIN 3.4 GM/DL (3.2-4.5); ALKALINE PHOSPHATASE 73 U/L (40-136); BILIRUBIN,TOTAL 0.8 MG/DL (0.1-1.0); BUN/CREATININE RATIO 19; CALCIUM 8.9 MG/DL (8.5-10.1); CARBON DIOXIDE 26 MMOL/L (21-32); CHLORIDE 102 MMOL/L (98-107); CREATININE SERUM 0.91 MG/DL (0.60-1.30); GFR ESTIMATED 59; GLUCOSE 210 MG/DL (70-105); MAGNESIUM 1.8 MG/DL (1.6-2.4); POTASSIUM 4.2 MMOL/L (3.6-5.0); SODIUM 140 MMOL/L (135-145); TOTAL PROTEIN 5.6 GM/DL (6.4-8.2)
[2019-06-02] MEDS: inSUlin ASPART (NovoLOG) 1 UNIT/0.01 ML (CHARGE PER UNIT) SC SCH ×2 (05:51→09:40)
[2019-06-02] MEDS: CATHETER FLUSH 10 ML SYR IV SCH ×2 (05:51→13:37)
[2019-06-02 08:00] VITALS: BP 170/70
[2019-06-02] MEDS ORDERED: amLODIPine 10 MG (NORVASC) TAB PO SCH (09:00)
[2019-06-02] MEDS ORDERED: amLODIPine 5 MG (NORVASC) TAB PO SCH (09:00)
--- NOTE | 2019-06-02 10:20 | Progress Note - Cardiology ---
Cardiology SOAP Progress Note Subjective: Not able to provide any history Objective: I&O/Vital Signs 06/02/19 06/02/19 06/02/19 06/02/19 00:22 01:00 04:30 07:00 Temp 36.7 36.8 Pulse 65 55 70 58 Resp 18 18 B/P (MAP) 148/66 (93) 165/79 (107) Pulse Ox 93 92 O2 Delivery Room Air Room Air 06/02/19 06/02/19 06/02/19 08:00 08:00 08:00 Temp 37.0 37.0 Pulse 72 72 Resp 24 24 B/P (MAP) 170/70 (103) 170/70 (103) Pulse Ox 93 92 O2 Delivery Room Air Room Air Room Air 06/02/19 00:00 Intake Total 240 ml Balance 240 ml Weight (Pounds): 140 Weight (Ounces): 0.2 Weight (Calculated Kilograms): 63.549256 Constitutional: No AAO x 3, No apparent distress; well-developed, well- nourished Respiratory: No accessory muscle use; other (good bilat air enty) Cardiovascular: regular rate-rhythm, S1 and S2, systolic murmur (soft EMMANUEL at card base) Gastrointestional: No tender; soft; No guarding, No rebound; audible bowel sounds Extremities: No clubbing, No cyanosis, No significant edema Neurologic/Psychiatric: No oriented x 3; other (seems to move all limbs equally) Skin: No rash on exposed areas, No ulcerations on exposed areas Results/Procedures: Labs Laboratory Tests 06/01/19 20:33: Glucometer 319H 06/02/19 04:15: White Blood Count 9.6, Red Blood Count 4.39, Hemoglobin 12.8, Hematocrit 39, Mean Corpuscular Volume 89, Mean Corpuscular Hemoglobin 29, Mean Corpuscular Hemoglobin Concent 33, Red Cell Distribution Width 14.6H, Platelet Count 142, Mean Platelet Volume 11.2H, Neutrophils (%) (Auto) 52, Lymphocytes (%) (Auto) 36, Monocytes (%) (Auto) 9, Eosinophils (%) (Auto) 2, Basophils (%) (Auto) 0, Neutrophils # (Auto) 5.0, Lymphocytes # (Auto) 3.5, Monocytes # (Auto) 0.9, Eos inophils # (Auto) 0.2, Basophils # (Auto) 0.0, Sodium Level 140, Potassium Level 4.2, Chloride Level 102, Carbon Dioxide Level 26, Anion Gap 12, Blood Urea Nitrogen 17, Creatinine 0.91, Estimat Glomerular Filtration Rate 59, BUN/Creatinine Ratio 19, Glucose Level 210H, Calcium Level 8.9, Corrected Calcium 9.4, Magnesium Level 1.8, Total Bilirubin 0.8, Aspartate Amino Transf (A ST/SGOT) 13, Alanine Aminotransferase (ALT/SGPT) < 6, Alkaline Phosphatase 73, Total Protein 5.6L, Albumin 3.4 06/02/19 09:39: Glucometer 274H Laboratory Tests 06/01/19 09:05 06/02/19 04:15 A/P: Assessment: Hypertension LBBB, probably chronic, no evidence of ACS Ac on chronic diastolic CHF, likely due to hypertensive cardiovascular disease Echo of 06/01/19: LVEF 50-55%, paradoxical septal motion, grade 1 diastolic dysfunction, mild , mild AI, mild MR, RVSP 17 mmHg DM II Chronic dementia H/o tardive dyskinesia Plan: * I discussed her case in detail with Dr Cote this am * Continue amlodipine for bp * Continue diuretics for CHF * Monitor labs as outpt * Ok to d/c from card standpoint MAYCOL COLLIER MD [facility] CCDS Jun 02, 2019 10:20 POS
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
[2019-06-02 12:00] VITALS: BP 145/68
[2019-06-02] MEDS ORDERED: BENZ0.5T42 PO (12:23)
[2019-06-02] MEDS ORDERED: AMLO10TA7 PO (12:23)
--- NOTE | 2019-06-02 12:27 | D/C HH Face to Face Order ---
D/C Face to Face Orders Reconcile Patient Problems Problems Reviewed?: Yes Instructions for Patient home health agency of facility choice Patient Instructions/FollowUp: follow up [place] yolis [facility]ad[facility] [place] follow up with dr. marshall in two weeks [place] Physician to follow Patient: yolis Discharge Diet for Home: Regular Diet Patient Problems: dementia psychosis hypertension hypertensive heart disease heart failure pulmonary hypertension tardive dyskinesia Goals for Patient: improved strength Patient Data-Allergies,Ht & Wt Patient Allergies: Coded Allergies: No Known Drug Allergies (Unverified , 03/29/16) Height (Feet): 5 Height (Inches): 3.00 Weight (Pounds): 140 Weight (Ounces): 0.2 Home Health Need/Face to Face Date of Face to Face: Jun 02, 2019 Clinical Findings: Generalized weakness and fatigue, Instability, Muscle weakness, Unsteady gait I have seen Pt [id number]: Yes Discharged To: Other ([facility] assisted living facility) Diagnosis/Conditions: dementia psychosis hypertension hypertensive heart disease heart failure pulmonary hypertension tardive dyskinesia Patient is Homebound due to: CognItive deficits, Jagdish fall risk due to instabilty, Muscle weakness Homebound Status Due to the above stated illness, injury or surgical procedure (medical condition or diagnosis) and associated clinical findings, the patient is homebound because of his/her inability to leave home except with aid of a supportive device and/or person AND leaving the home requires a considerable and taxing effort or is medically contraindicated. Pt req the following assistanc: Wheelchair Home Health Nursing Orders Home Health Services Order: Nursing Services, Flexo Folder Gluer Operator-Evaluate & Treat, Physical Therapy-Evaluate & Treat Home Health Infusion Therapy Line Start Date: Jun 01, 2019 Therapy Orders Therapy Orders: Physical Therapy, PT to assess for OT, Speech Language Pathology Therapy Specific Orders: Eval assistive deivces, Teach strategies/cognitive deficits, Teach enviro modifications/safety, Increase strength/endurance please have hospice eval to see if they think pt may be appropriate to be on service after home health or if she fails home health - [place] [facility] to eval - Hospice eval is per family and provider request Certify Stmt I certify that this patient is under my care and that I, a nurse practitioner or a physician; a railways assistant working with me, had a face to face encounter that - meets the physician face to face encounter requirements with this patient as dated. BIRGIT BARBOSA MD Jun 02, 2019 12:27 POS
== END 2019-06-02 14:30 | DRG 293 ==
LOC: EDUNIT# 08:57 → ER 08:59 → 4TH 11:54
PROVIDERS: ADMIT Family Medicine; ATTEND Family Medicine
DX: I11.0 Hypertensive heart disease with heart failure (principal); I50.33 Acute on chronic diastolic (congestive) heart failure; I44.7 Left bundle-branch block, unspecified; R00.1 Bradycardia, unspecified; E11.9 Type 2 diabetes mellitus without complications; F03.90 Unspecified dementia, unspecified severity, without behavioral disturbance, psychotic disturbance, mood disturbance, and anxiety; Z66 Do not resuscitate; R53.1 Weakness; E03.9 Hypothyroidism, unspecified; I08.0 Rheumatic disorders of both mitral and aortic valves; E78.00 Pure hypercholesterolemia, unspecified; F41.9 Anxiety disorder, unspecified; F31.9 Bipolar disorder, unspecified; H91.90 Unspecified hearing loss, unspecified ear; L40.9 Psoriasis, unspecified; I42.9 Cardiomyopathy, unspecified; G24.01 Drug induced subacute dyskinesia; I48.91 Unspecified atrial fibrillation; R09.89 Other specified symptoms and signs involving the circulatory and respiratory systems; Z79.4 Long term (current) use of insulin; Z91.81 History of falling; Z87.440 Personal history of urinary (tract) infections
CPT/HCPCS: 36415; 51701; 71045; 80053; 81000; 82962; 83735; 83880; 84484; 85025; 86141; 93005; 93306